=== PATIENT | male | born 1960 | race Hispanic/Latino ===

== ENCOUNTER 2016-09-23 09:10 | Inpatient (IN) | payer MEDICAID, OTHER ==
--- NOTE | 2016-09-23 10:25 | C.PDOC ---
History Of Present Illness 56 y/o male pmhx asthma, diabetes, brought in by EMS presents to the ED stating he needs to "come down from insulin." Pt discharged from [facility] this morning with Rx for metformin. Pt homeless, poor historian. No headache, SOB, cough, vomiting, diarrhea or any other complaints. As per EMS patient fell and sustained abrasion to left brow. Time Seen by Provider: 09/23/16 09:59 Chief Complaint (Nursing): Lower Extremity Problem/Injury History Per: Patient History/Exam Limitations: clinical condition Severity: Mild Recent travel outside of the [place]: No Past Medical History Reviewed: Historical Data, Nursing Documentation, Vital Signs Vital Signs: Last Vital Signs Temp 98.4 F 09/23/16 13:49 Pulse 78 09/23/16 13:49 Resp 18 09/23/16 13:49 BP 159/89 H 09/23/16 13:49 Pulse Ox 100 09/23/16 16:35 - Medical History PMH: Diabetes, HTN Family History: States: Unknown Family Hx - Social History Hx Alcohol Use: Yes (history) Hx Substance Use: Yes (history) Review Of Systems Except As Marked, All Systems Reviewed And Found Negative. Constitutional: Negative for: Fever Cardiovascular: Negative for: Chest Pain Respiratory: Negative for: Shortness of Breath Gastrointestinal: Negative for: Vomiting, Diarrhea Neurological: Negative for: Headache Physical Exam - Physical Exam Appears: Non-toxic, Unkempt, Other (groggy) Skin: Warm, Dry, No Rash Head: Atraumatic, Normacephalic, Abrasion (over left eye), Other (multiple scars over bilateral eyebrows) Eye(s): bilateral: EOMI Nose: Normal, No Epistaxis Neck: Normal ROM, Supple Chest: Symmetrical Cardiovascular: Rhythm Regular Respiratory: Normal Breath Sounds, No Rales, No Rhonchi, No Wheezing Gastrointestinal/Abdominal: Soft, No Tenderness Extremity: Normal ROM, Pedal Edema (bilateral lower extremities), Other ( venoustasis changes to bilateral lower extremities) Neurological/Psych: Normal Motor, Normal Sensation ED Course And Treatment - Laboratory Results Result Diagrams: 09/23/16 11:00 09/23/16 11:00 O2 Sat by Pulse Oximetry: 100 (on room air) Pulse Ox Interpretation: Normal - CT Scan/US CT head Other Rad Studies (CT/US): Read By Radiologist, Radiology Report Reviewed CT/US Interpretation: Accession No. : [id number]. Patient Name / ID : ANGUS TABARES / [id number]. Exam Date : 09/23/2016 10:38:59 ( Approved ). Study Comment : Sex / Age : M / 56Y. Creator : Roslyn Li MD. Dictator : Roslyn Li MD. Tibco Developer : Mica Layer : Roslyn Li MD. Approver2 : Report Date : 09/23/2016 10:57:09. My Comment : . PROCEDURE: CT HEAD WITHOUT CONTRAST. HISTORY: fall. COMPARISON: None available. TECHNIQUE: Axial computed tomography images were obtained through the head/brain without intravenous contrast. Radiation dose: Total exam DLP = 922.93 mGy-cm. FINDINGS: HEMORRHAGE: No intracranial hemorrhage. BRAIN: Mild diffuse atrophy with prominence of the ventricles and sulci noted. No mass effect or edema. The lux-white matter differentiation appears intact. Please note that MRI with diffusion imaging is more sensitive in the detection of acute ischemic event. VENTRICLES: No hydrocephalus. CALVARIUM: Unremarkable. PARANASAL SINUSES: Near complete opacification of the bilateral maxillary sinuses. Extensive opacification of the bilateral ethmoid air cells and bilateral frontal sinuses. MASTOID AIR CELLS: Unremarkable as visualized. No inflammatory changes. OTHER FINDINGS: Right parietal scalp soft tissue swelling. IMPRESSION: No acute intracranial hemorrhage. Mild diffuse atrophy. Right parietal scalp soft tissue swelling. Near complete opacification of the bilateral maxillary sinuses. Extensive opacification of the bilateral ethmoid air cells and bilateral frontal sinuses. Appearance suspected to reflect sinusitis. Occult fracture cannot be entirely excluded. If this is of clinical concern, suggest maxillofacial CT. Medical Decision Making Medical Decision Making: Plan: * CT head * labs * metformin * * Patient was just discharged from [facility] this morning, has Rx for Metformin, has multiple healing lacerations to both brows, chronic hematomas to both brows. Patient awake and alert. States he wants to go to [place]. He has a small lack over right parietal region, no active bleeding, CT no ICH, choice made not to place staple because patient is likely to be lost to follow up and staple would remain in place for too long. Patient was being discharged fro ED but rolled out of bed and landed on the floor on his v=face. Patient sustained another lac to his scarred broe to the right side. Bleeding stopped. Patient to be admitted due to being unable to walk. Patient moved to bed 8, railings up, patient climbed over raillings and again landed on his face, now sustaining a lac over left brow and left eyelid. Patient placed on 1:1 for safety. Spoke with Dr. Hunter, will admit for observation. Proceedure: Procedure explained to the patients. left brow and left lid cleaned and draped in a sterile fashion. Lidocaine 2% used for anesthesia. Laceration 2 cm long 4 5-0 absorbable sutures placed to left lid Disposition Discussed With Dr.: Mel Solorio Counseled Patient/Family Regarding: Studies Performed, Diagnosis, Need For Followup - Disposition Disposition: HOSPITALIZED Disposition Time: 12:56 Condition: GUARDED - POA Present On Arrival: None - Clinical Impression Clinical Impression: Substance abuse, Fall, Hyperglycemia, Abnormal blood chemistry - Scribe Statement The provider has reviewed the documentation as recorded by the Ramakrishna Méndez Provider Attestation: All medical record entries made by the Ramakrishna were at my direction and personally dictated by me. I have reviewed the chart and agree that the record accurately reflects my personal performance of the history, physical exam, medical decision making, and the department course for this patient. I have also personally directed, reviewed, and agree with the discharge instructions and disposition. Decision To Admit - Pt Status Changed To: Hospital Disposition Of: Observation - . Bed Request Type: Regular Patient Diagnosis: Substance abuse, Fall, Hyperglycemia, Abnormal blood chemistry
--- NOTE | 2016-09-23 10:58 | CT ---
PROCEDURE: CT HEAD WITHOUT CONTRAST. HISTORY: fall COMPARISON: None available. TECHNIQUE: Axial computed tomography images were obtained through the head/brain without intravenous contrast. Radiation dose: Total exam DLP = 922.93 mGy-cm. FINDINGS: HEMORRHAGE: No intracranial hemorrhage. BRAIN: Mild diffuse atrophy with prominence of the ventricles and sulci noted. No mass effect or edema. The lux-white matter differentiation appears intact. Please note that MRI with diffusion imaging is more sensitive in the detection of acute ischemic event. VENTRICLES: No hydrocephalus. CALVARIUM: Unremarkable. PARANASAL SINUSES: Near complete opacification of the bilateral maxillary sinuses. Extensive opacification of the bilateral ethmoid air cells and bilateral frontal sinuses. MASTOID AIR CELLS: Unremarkable as visualized. No inflammatory changes. OTHER FINDINGS: Right parietal scalp soft tissue swelling. IMPRESSION: No acute intracranial hemorrhage. Mild diffuse atrophy. Right parietal scalp soft tissue swelling. Near complete opacification of the bilateral maxillary sinuses. Extensive opacification of the bilateral ethmoid air cells and bilateral frontal sinuses. Appearance suspected to reflect sinusitis. Occult fracture cannot be entirely excluded. If this is of clinical concern, suggest maxillofacial CT.
[2016-09-23 11:12] LABS: BASO # 0.1 K/uL (0.0-0.2); BASO % 0.5 % (0.0-2.0); EOS # 0.2 K/uL (0.0-0.7); EOS % 1.5 % (0.0-4.0); HEMATOCRIT 32.4 % (35.0-51.0); LYMPH # 0.7 K/uL (1.0-4.3); LYMPH % 4.6 % (20.0-40.0); MEAN CELL VOLUME 90.1 fL (80.0-94.0); MEAN CORPUSCULAR HEMOGLOBIN 31.3 pg (27.0-31.0); MEAN CORPUSCULAR HGB CONC 34.7 g/dL (33.0-37.0); MEAN PLATELET VOLUME 7.9 fL (7.2-11.7); MONO # 0.5 K/uL (0.0-0.8); MONO % 2.9 % (0.0-10.0); NRBC % 0.4 % (0.0-2.0); PLATELET COUNT 107 K/uL (130-400); RED CELL DISTRIBUTION WIDTH 13.2 % (11.5-14.5); WHITE BLOOD COUNT 15.4 K/uL (4.8-10.8)
[2016-09-23 11:25] LABS: CHLORIDE 92 mmol/L (98-107)
[2016-09-23 11:26] LABS: SODIUM 131 mmol/L (132-148)
[2016-09-23 11:28] LABS: ALB/GLOB RATIO 0.6 (1.0-2.1); ALKALINE PHOSPHATASE 127 U/L (38-126); AST/SGOT 90 U/L (17-59); BILIRUBIN,TOTAL 1.5 mg/dL (0.2-1.3); BLOOD UREA NITROGEN 16 mg/dL (9-20); CARBON DIOXIDE 25 mmol/L (22-30); GFR AFRICAN-AMERICAN > 60; GLUCOSE,RANDOM 286 mg/dL (75-110); POTASSIUM 4.4 mmol/L (3.6-5.2); TOTAL PROTEIN 8.6 g/dL (6.3-8.3)
[2016-09-23 11:29] LABS: ALT/SGPT 45 U/L (21-72); CALCIUM 7.8 mg/dl (8.6-10.4)
[2016-09-23 11:38] LABS: ALCOHOL SERUM < 10 mg/dl (0-10)
[2016-09-23 11:40] LABS: EOSINOPHIL 1 % (0-4); NEUTROPHIL 88 % (50-75); TOTAL CELLS COUNTED 100
[2016-09-23] MEDS ORDERED: Midazolam 2 MG/2 ML VIAL ONE (11:45)
[2016-09-23] MEDS ORDERED: Sodium Chloride 0.9% 1,000 ML IV ONE (11:45)
--- NOTE | 2016-09-23 16:44 | CT ---
PROCEDURE: CT HEAD WITHOUT CONTRAST. HISTORY: fall COMPARISON: Comparison is made to the previous same-day study done at 10:40 a.m. TECHNIQUE: Axial computed tomography images were obtained through the head/brain without intravenous contrast. Radiation dose: Total exam DLP = 934.41 mGy-cm. FINDINGS: HEMORRHAGE: Interval appearance of trace extra-axial likely subdural hematoma at the right parietal frontal convexity best seen on image 34 series 4. There is also questionable trace subdural hematoma at the left temporal convexity versus artifact best seen on image 13 series 4. BRAIN: No mass effect or edema. [id number] atrophy is again noted. VENTRICLES: Unremarkable. No hydrocephalus. CALVARIUM: Unremarkable. PARANASAL SINUSES: Again seen is almost complete opacification of the maxillary and ethmoid sinuses and mucosal thickening in the frontal sinuses consistent with sinusitis. MASTOID AIR CELLS: Unremarkable as visualized. No inflammatory changes. OTHER FINDINGS: None. IMPRESSION: Interval appearance of small amount of extra-axial likely subdural hematoma along right temporal frontal convexity since the previous exam. Questionable trace left sided subdural hematoma versus artifact from dural thickening. Follow-up study 12- 24 hour is recommended. Otherwise no significant interval change.
[2016-09-23] MEDS ORDERED: Lidocaine 2% Inj (20ml) ONE ×2 (17:01→17:03)
--- NOTE | 2016-09-23 19:22 | CP.PCM.CON ---
<Pratima Albright - Last Filed: 09/23/16 19:32> History of Present Illness - History of Present Illness History of Present Illness: ICU Consult Note - Dr. Avalos Patient is a 56 M admitted to the ED for hyperglycemia. Patient is a homeless male with a previous hospital admission for diabetes, where he was given a prescription for Metformin. Heroine and barbiturates found in urine toxicology screen. He fell on his face in the emergency department. They sent him for a CT scan, which showed no bleed. He fell on his face a second time and was subsequently found to have a small subdural hematoma. Stitches were placed on his left forehead for the laceration. Patient was seen for possible admission to the ICU by Dr. Avalos and was found to be laying on an incline and eating while being fed by a nurse. Patient was able to hold a conversation and showed no signs of nausea, vomiting, chest pain , shortness of breath. ED attending noted patient unlikely a surgical candidate. Review of Systems - Review of Systems Review of Systems: Patient is responsive, cooperative, and is exhibiting no signs of respiratory distress. Patient is A&O x 2. - Constitutional Constitutional: Frequent Falls - EENT Eyes: absent: Change in Vision Nose/Mouth/Throat: Nasal Trauma. absent: Epistaxis - Cardiovascular Cardiovascular: absent: Chest Pain, Dyspnea - Respiratory Respiratory: absent: Dyspnea, Chest Congestion - Gastrointestinal Gastrointestinal: absent: Abdominal Pain, Constipation, Diarrhea, Nausea, Vomiting - Genitourinary Genitourinary: absent: Change in Urinary Stream - Musculoskeletal Musculoskeletal: absent: Abnormal Gait, Muscle Weakness - Integumentary Integumentary: absent: New Lesions - Neurological Neurological: Headaches. absent: Dizziness, Loss of Vision, Vertigo Past Patient History - Infectious Disease Hx of Infectious Diseases: None - Past Social History Smoking Status: Light Smoker < 10 Cigarettes Daily - CARDIAC Hx Hypertension: Yes - PULMONARY Hx Respiratory Disorders: Yes Hx Tuberculosis: Yes (Hx) - NEUROLOGICAL Hx Neurological Disorder: No - HEENT Hx HEENT Problems: No - RENAL Hx Chronic Kidney Disease: No - ENDOCRINE/METABOLIC Hx Endocrine Disorders: Yes Hx Diabetes Mellitus Type 2: Yes - HEMATOLOGICAL/ONCOLOGICAL Hx Blood Disorders: No - INTEGUMENTARY Hx Dermatological Problems: Yes Other/Comment: Chronic leg wound - MUSCULOSKELETAL/RHEUMATOLOGICAL Hx Musculoskeletal Disorders: No - GASTROINTESTINAL Hx Gastrointestinal Disorders: No - GENITOURINARY/GYNECOLOGICAL Hx Genitourinary Disorders: No - PSYCHIATRIC Hx Substance Use: Yes (history) - SURGICAL HISTORY Hx Surgeries: Yes Hx Musculoskeletal Surgery: Yes (Right leg surgery) - ANESTHESIA Hx Anesthesia: Yes Hx Anesthesia Reactions: No Meds Allergies/Adverse Reactions: Allergies Allergy/AdvReac Type Severity Reaction Status Date / Time shellfish derived Allergy Intermediate RASH Verified 09/23/16 09:43 Physical Exam - Constitutional Appears: No Acute Distress - Head Exam Head Exam: absent: ATRAUMATIC Additional comments: Patient has bilateral swelling (periorbital) of the eyelids with erythema. Patient has sutures placed at laceration. - Eye Exam Eye Exam: EOMI, Periorbital swelling, Periorbital tenderness, PERRL - ENT Exam ENT Exam: Mucous Membranes Moist - Neck Exam Neck exam: Positive for: Full Rom, Normal Inspection - Respiratory Exam Respiratory Exam: Clear to Auscultation Bilateral, NORMAL BREATHING PATTERN - Cardiovascular Exam Cardiovascular Exam: +S1, +S2. absent: Diastolic murmur, Systolic Murmur - GI/Abdominal Exam GI & Abdominal Exam: Normal Bowel Sounds, Soft - Extremities Exam Extremities exam: Positive for: full ROM - Neurological Exam Neurological exam: Alert Additional comments: oriented x2 5/5 muscle strength to extremities - Psychiatric Exam Psychiatric exam: Normal Affect, Normal Mood - Skin Skin Exam: Dry Additional comments: mottled anterior shins and clubbing of digits Results - Vital Signs Recent Vital Signs: Last Vital Signs Temp 98.4 F 09/23/16 13:49 Pulse 78 09/23/16 13:49 Resp 18 09/23/16 13:49 BP 159/89 H 09/23/16 13:49 Pulse Ox 100 09/23/16 17:36 - Labs Result Diagrams: 09/23/16 11:00 09/23/16 11:00 Labs: Laboratory Results - last 24 hr 09/23/16 16:39 Ammonia < 9 L Assessment & Plan (1) Subdural hematoma Status: Acute (2) Hyperglycemia Status: Acute - Assessment and Plan (Free Text) Assessment: Pt is a homeless 56M with medical history of diabetes who presented to the ED with hyperglycemia and admitted to ICU for observation for subdural hematoma. Positive for benzos and opiates. Plan: 1. Subdural Hematoma Observation f/u neurosurgeon, Dr. Roa recommendations Neurochecks q4h one to one CT Head: Interval appeaance of small amount of extra-axial likely subdural hematoma along right temporal frontal convexity compared to previous CT head. Questionable trace left sided subdural hematoma versus artifact from dural thickening 2. Hyperglycemia History of Diabetes Novolin Sliding Scale Accuchecks ACHS Monitor - Date & Time Date: 09/23/16 Time: 19:41 <Jaskaran Avalos M - Last Filed: 09/27/16 09:51> Meds - Medications Medications: Current Medications Amlodipine Besylate (Norvasc) 10 mg PO DAILY [facility] Last Admin: 09/26/16 09:07 Dose: 10 mg Glipizide (Glucotrol) 10 mg PO ACBD [facility] Last Admin: 09/27/16 08:14 Dose: 10 mg Ceftriaxone Sodium 1 gm/ (Sodium Chloride) 100 mls @ 100 mls/hr IVPB DAILY [facility] Last Admin: 09/26/16 09:07 Dose: 100 mls/hr Insulin Aspart (Novolog) 0 unit SC ACHS [facility] PRN Reason: Protocol Last Admin: 09/26/16 21:56 Dose: Not Given Insulin Glargine (Lantus) 12 unit SC HS [facility] Last Admin: 09/26/16 21:55 Dose: 12 u Labetalol HCl (Trandate) 100 mg PO Q12 [facility] Last Admin: 09/26/16 21:57 Dose: 100 mg Sitagliptin Phosphate (Januvia) 100 mg PO ACB [facility] Last Admin: 09/27/16 08:13 Dose: 100 mg Results - Vital Signs Recent Vital Signs: Last Vital Signs Temp 97.2 F L 09/27/16 08:35 Pulse 60 09/27/16 08:35 Resp 20 09/27/16 08:35 BP 163/90 H 09/27/16 08:35 Pulse Ox 100 09/27/16 08:35 - Labs Result Diagrams: 09/26/16 07:08 09/26/16 07:08 Labs: Laboratory Results - last 24 hr 09/26/16 09/26/16 09/26/16 11:41 17:12 21:18 POC Glucose (mg/dL) 282 H 284 H 349 H 09/27/16 06:57 POC Glucose (mg/dL) 276 H Attending/Attestation - Attestation I have personally seen and examined this patient.: Yes I have fully participated in the care of the patient.: Yes I have reviewed all pertinent clinical information: Yes Notes (Text): Today: September Patient seen and examined, Medical records reviewed Pain issues, skin care, head of the bed elevation, GI/DVT prophylaxis, glycemic control were addressed, and management discussed and formulated. Agree with above treatment plans as transcribed in Dr. Castro note Patient with alcohol dependence, admitted S/p fall with subdural hematoma EtOH <10, monitor for alcohol withdrawal, folate and thiamine Subdural hematoma 1:[address] scan Neurolgy and neurosurgery consultation called Neurochecks q4 Reume home antihypertensive and diabetic medications Accuchecks ACHS Total critical care time 45 minutes
[2016-09-23] MEDS ORDERED: Multivitamin (MVI) 10 ML, Thiamine 100 MG, Folic Acid 1 MG in Sodium Chloride 0.9% 1,00... IV ONE (19:30)
[2016-09-23 20:44] LABS: INR 1.3
[2016-09-23 20:53] LABS: IRON 55 ug/dL (49-181)
--- NOTE | 2016-09-23 21:01 | US ---
EXAM: US Abdomen Complete. CLINICAL HISTORY: 56 years old, male; Signs and symptoms; Other: Elevated lft; Additional info: Abnormal lft's TECHNIQUE: Real-time ultrasound of the abdomen (complete) with image documentation. COMPARISON: No relevant prior studies available. FINDINGS: Liver: Measured at 15.3 cm. Increased echogenicity. No mass. No intrahepatic bile duct dilation. Gallbladder: Not visualized. Common bile duct: No dilation, measured at 2.1 mm. Pancreas: Limited evaluation of the pancreas. Pancreatic duct measured at 3.2 mm. Kidneys: Right kidney measured 9.8 cm. Left kidney measured 10.6 cm. No hydronephrosis. Spleen: Measured at 12.6 x 6 cm. Aorta/IVC: Limited evaluation. Unremarkable as visualized. Free fluid visualized around the liver. IMPRESSION: Free fluid visualized around the liver. Liver demonstrates increased echogenicity. Limited evaluation of the pancreas. Pancreatic duct measured at 3.2 mm. Gallbladder not visualized. Additional details/findings as above.
--- NOTE | 2016-09-23 21:58 | CP.PCM.PN ---
Subjective - Date & Time of Evaluation Date of Evaluation: 09/23/16 Time of Evaluation: 20:40 - Subjective Subjective: H&P dictated #[id number] Objective - Vital Signs/Intake and Output Vital Signs (last 24 hours): Temp Pulse Resp BP Pulse Ox 98.4 F 80 14 130/80 100 09/23/16 13:49 09/23/16 19:30 09/23/16 19:30 09/23/16 19:30 09/23/16 19:30 - Medications Medications: Current Medications Multivitamins/Vitamin C 10 ml/Thiamine HCl 100 mg/ Folic Acid 1 mg/ Sodium Chloride 1,011.2 mls @ 80 mls/hr IV .[id number] ONE Stop: 09/24/16 08:08 Insulin Human Regular (Novolin R) 0 unit SC ACHS [facility] PRN Reason: Protocol - Labs Labs: PT 14.4 SECONDS (9.7-12.2) H 09/23/16 20:32 INR 1.3 09/23/16 20:32 APTT 30 SECONDS (21-34) 09/23/16 20:32
[2016-09-23] MEDS: (Novolin R) Insulin Human Regular 100 units/ml vial SC SCH (22:17)
--- NOTE | 2016-09-24 05:26 | HP ---
CHIEF COMPLAINT: Brought in by EMS as patient was found on the street wandering. HISTORY OF PRESENT ILLNESS: The patient is a 56-year-old male with past medical history of diabetes mellitus, asthma, noncompliant with medications who was brought in by EMS as the patient was found on the street, looking for the medication. All the history obtained from the ER physician's note and the patient is not able to give any detailed history. He is very reluctant to give the history while he was admitted to the hospital. As per the ER physician, he was seen at [facility] this morning for hyperglycemia. He was given a prescription for metformin and discha rged home. He was found wandering on the street and he is homeless. He was brought into the Emergen cy Room by EMS. As per ER physician, while the patient is being evaluated in the Emergency Room, he had 2 episodes of fall, hitting the forehead twice while he was in the Emergency Room. The patient u nderwent 2 CT scans in the ED, the initial scan did not show any bleed, but later scan showed a small subdural hematoma for which patient is being admitted for further evaluation. When I examined the p atient in the Emergency Room, the patient is sleepy, arousable, denied any headache, dizziness. Nitin ed any chest pain, shortness of breath or wheezing. Denied any nausea, vomiting, abdominal pain, chris rrhea or constipation. Denied any urinary complaints. Denied any leg pains or leg cramps. He was g oing back to sleep in-between the conversation. PAST MEDICAL HISTORY: Diabetes mellitus, asthma. PAST SURGICAL HISTORY: He denies any past surgical history. FAMILY HISTORY: Unknown. PERSONAL HISTORY: He is homeless. SOCIAL HISTORY: He admits to using alcohol, smoke cigarettes and uses heroine as per him. ALLERGIES: HE IS ALLERGIC TO SHELLFISH. HOME MEDICATIONS: Metformin 1000 mg p.o. b.i.d., Suboxone 8 mg/2 mg one sublingual daily. REVIEW OF SYSTEMS: As described in history of present illness. PHYSICAL EXAMINATION: GENERAL: Middle-aged male lying in bed in no acute distress. Sleepy, arousable. HEENT: Pupils equal, round, reacting to light and accommodation. No icterus, no pallor. There is u pper lid edema bilaterally from the fall. No oral thrush. No pharyngeal congestion. NECK: Supple. No JVD. LUNGS: Bilateral vesicular breath sounds. No wheezing, no rhonchi. CARDIOVASCULAR: S1, S2 present, regular. ABDOMEN: Soft, nontender. Bowel sounds present. No guarding, no rigidity, no rebound tenderness no pawel. CENTRAL NERVOUS SYSTEM: Sleepy, arousable, oriented x1. Moving all extremities equally. Gait, did not test. EXTREMITIES: No edema, very unkempt dry skin, left leg. There is 3 inches x 1 inch size stage II to III ulcer noted which was dressed in the Emergency Room. Palpable peripheral pulses. LABORATORY DATA: Labs done from the Emergency WBC 15.4, hemoglobin 11.2, hematocrit 32.4, platelets 107. PT 14.4, INR 1.3, PTT 30. Sodium 131, potassium 4.4, chloride 92, bicarbonate 25, BUN 16; crea tinine 0.9; glucose 308, 315, 452; calcium 7.8, total bilirubin 1.5, AST 90, ALT 45, alkaline phospha tase 127, total protein 8.6, albumin 3.2. Urine drug screen positive for opiates and benzodiazepines . Alcohol less than 20. Chest x-ray not done, initial CT head consistent with some mild diffuse atr ophy, right parietal scalp soft tissue swelling, near complete opacification of the bilateral maxilla ry sinuses, extensive opacification of the bilateral ethmoid air cells and bilateral frontal sinuses, occult fracture cannot be entirely excluded. Repeat CT consistent with interval appearance of small amount of extraaxial likely subdural hematoma along the right temporal frontal convexity since the p revious exam, questionable trace left side subdural hematoma versus artifact from dural thickening. Ultrasound of the abdomen consistent with free fluid visualized around the liver, liver demonstrates increased echogenicity. Limited evaluation of the pancreas, pancreatic duct measured 3.2mm. Gallbla dder not visualized. There was no EKG done and echocardiogram done, no x-ray done. ASSESSMENT AND PLAN: Middle-aged male with history of diabetes, asthma, noncompliant with his medica tion. Seen in [facility] ED, sent home with a script for metformin brought in by EMS. The patien t was having multiple falls in the ED and found to be confused, his CT consistent with a small subdur al hematoma and patient is being admitted for further management. 1. Small subdural hematoma, right and questionable left-sided hematoma versus artifact. 2. History of unsteady gait. 3. History of diabetes mellitus. 3. History of asthma, thrombocytopenia. 4. Abnormal LFTs, rule out alcoholic liver disease, substance abuse, hyperglycemia and initial CT co nsistent with possible sinusitis. 5. Slightly elevated WBC count. PLAN: The patient is being admitted to ICU for monitoring. We will do neuro checks q. 2 hours. We will keep the patient n.p.o., give IV fluids with banana bag at 80 mL/hour. We will do Accu-Chek q.i .d. with sliding scale coverage. We will obtain neurosurgery evaluation with Dr. Roa for subdura l hematoma. Repeat CT scan in a.m. We will obtain wound care consult and wet and dry dressing for t he left lower extremity ulcer. Start Rocephin 1 gram IV daily for possible sinusitis. We will check EKG and chest x-ray. We will repeat labs in a.m., monitor platelets closely. The patient needs for physical therapy and social media developer for possible subacute rehab placement once clinically stable an d medically clear. We will add further recommendation as his clinical course progresses. Mel Solorio MD cc: [id number] TT: 09/24/2016 05:26:17 ak
[2016-09-24 06:27] LABS: BASO % 0.2 % (0.0-2.0); EOS # 0.1 K/uL (0.0-0.7); EOS % 0.7 % (0.0-4.0); HEMATOCRIT 28.8 % (35.0-51.0); LYMPH # 1.4 K/uL (1.0-4.3); MEAN CELL VOLUME 89.6 fL (80.0-94.0); MEAN CORPUSCULAR HEMOGLOBIN 31.9 pg (27.0-31.0); MEAN CORPUSCULAR HGB CONC 35.6 g/dL (33.0-37.0); MEAN PLATELET VOLUME 7.8 fL (7.2-11.7); MONO # 0.6 K/uL (0.0-0.8); MONO % 3.6 % (0.0-10.0); NRBC % 0.1 % (0.0-2.0); PLATELET COUNT 121 K/uL (130-400); RED CELL DISTRIBUTION WIDTH 13.1 % (11.5-14.5)
[2016-09-24 06:28] LABS: CHLORIDE 94 mmol/L (98-107); SODIUM 133 mmol/L (132-148)
[2016-09-24 06:30] LABS: CHOLESTEROL 79 mg/dL (0-199)
[2016-09-24 06:31] LABS: ALB/GLOB RATIO 0.6 (1.0-2.1); ALKALINE PHOSPHATASE 119 U/L (38-126); AST/SGOT 59 U/L (17-59); BILIRUBIN,TOTAL 1.2 mg/dL (0.2-1.3); BLOOD UREA NITROGEN 23 mg/dL (9-20); CARBON DIOXIDE 25 mmol/L (22-30); GFR AFRICAN-AMERICAN > 60; GLUCOSE,RANDOM 368 mg/dL (75-110); TOTAL PROTEIN 7.9 g/dL (6.3-8.3)
[2016-09-24 06:32] LABS: ALT/SGPT 39 U/L (21-72); CALCIUM 7.8 mg/dl (8.6-10.4)
[2016-09-24 06:36] LABS: MAGNESIUM 1.8 mg/dL (1.6-2.3); PHOSPHOROUS 3.4 mg/dL (2.5-4.5)
[2016-09-24] MEDS: (Novolin R) Insulin Human Regular 100 units/ml vial SC SCH ×2 (08:06→12:48)
--- NOTE | 2016-09-24 08:45 | RAD ---
HISTORY: Admission film COMPARISON: No prior. FINDINGS: LUNGS: Biapical pleural thickening with upper lobe granulomatous changes. No gross focal infiltrate or effusion. PLEURA: No significant pleural effusion identified, no pneumothorax apparent. CARDIOVASCULAR: Normal. OSSEOUS STRUCTURES: No significant abnormalities. VISUALIZED UPPER ABDOMEN: Normal. OTHER FINDINGS: None. IMPRESSION: Biapical pleural thickening with upper lobe granulomatous changes. No gross focal infiltrate or effusion.
[2016-09-24 08:57] LABS: EOSINOPHIL 1 % (0-4); NEUTROPHIL 86 % (50-75); REACTIVE LYMPHOCYTES 1 % (0-0); TOTAL CELLS COUNTED 100
--- NOTE | 2016-09-24 10:18 | CT ---
PROCEDURE: CT HEAD WITHOUT CONTRAST. HISTORY: fall COMPARISON: None available. TECHNIQUE: Axial computed tomography images were obtained through the head/brain without intravenous contrast. Radiation dose: Total exam DLP = 2320.92 mGy-cm. FINDINGS: HEMORRHAGE: Trace right frontal extra-axial hemorrhage seen on prior examination is no longer evident. Questionable left temporal extra-axial hemorrhage again identified without interval increase in width. . No other extra-axial hemorrhage identified. No parenchymal or intraventricular hemorrhage appreciated. BRAIN: No mass effect or edema. Mild atrophy consistent with age. No evidence of acute infarct. VENTRICLES: Unremarkable. No hydrocephalus. CALVARIUM: No fracture. PARANASAL SINUSES: Almost complete opacification of both maxillary sinuses with extensive frontal and ethmoid mucoperiosteal thickening. . MASTOID AIR CELLS: Unremarkable as visualized. No inflammatory changes. OTHER FINDINGS: None. IMPRESSION: Persistent small left temporal extra-axial hemorrhage, likely subdural. Right frontal extra-axial hemorrhage is no longer evident. No other acute abnormality.
--- NOTE | 2016-09-24 10:42 | CP.PCM.PN ---
Subjective - Date & Time of Evaluation Date of Evaluation: 09/24/16 Time of Evaluation: 10:41 - Subjective Subjective: questionable at best SDH most likly dural thickening Stable since last CT No intervention indicated Clear by neurosurgery Objective - Vital Signs/Intake and Output Vital Signs (last 24 hours): Temp Pulse Resp BP Pulse Ox 97.5 F L 50 L 22 172/87 H 98 09/24/16 08:00 09/24/16 08:08 09/24/16 08:08 09/24/16 08:08 09/24/16 08:08 Intake and Output: 09/24/16 09/24/16 06:59 18:59 Intake Total 820 160 Output Total 300 100 Balance 520 60 - Medications Medications: Current Medications Ceftriaxone Sodium 1 gm/ (Sodium Chloride) 100 mls @ 100 mls/hr IVPB DAILY YEISON Last Admin: 09/24/16 00:45 Dose: 100 mls/hr Insulin Human Regular (Novolin R) 0 unit SC ACHS YEISON PRN Reason: Protocol Last Admin: 09/24/16 08:06 Dose: 8 unit - Labs Labs: 09/24/16 06:11 09/24/16 06:10 PT 14.4 SECONDS (9.7-12.2) H 09/23/16 20:32 INR 1.3 09/23/16 20:32 APTT 30 SECONDS (21-34) 09/23/16 20:32
--- NOTE | 2016-09-24 11:27 | CP.PCM.PN ---
Subjective - Date & Time of Evaluation Date of Evaluation: 09/24/16 Time of Evaluation: 11:15 - Subjective Subjective: Progress note dictated #[id number] Objective - Vital Signs/Intake and Output Vital Signs (last 24 hours): Temp Pulse Resp BP Pulse Ox 97.5 F L 53 L 17 170/102 H 99 09/24/16 08:00 09/24/16 11:00 09/24/16 11:00 09/24/16 10:08 09/24/16 11:00 Intake and Output: 09/24/16 09/24/16 06:59 18:59 Intake Total 820 248 Output Total 300 200 Balance 520 48 - Medications Medications: Current Medications Home Med (Metformin [Glucophage]) 1,000 mg PO BID [facility] Ceftriaxone Sodium 1 gm/ (Sodium Chloride) 100 mls @ 100 mls/hr IVPB DAILY [facility] Last Admin: 09/24/16 00:45 Dose: 100 mls/hr Insulin Human Regular (Novolin R) 0 unit SC ACHS YEISON PRN Reason: Protocol Last Admin: 09/24/16 08:06 Dose: 8 unit - Labs Labs: 09/24/16 06:11 09/24/16 06:10 PT 14.4 SECONDS (9.7-12.2) H 09/23/16 20:32 INR 1.3 09/23/16 20:32 APTT 30 SECONDS (21-34) 09/23/16 20:32
--- NOTE | 2016-09-24 13:15 | CON ---
DATE: 09/24/2016 In ICU room 18. This is a 56-year-old male with known history of type 2 diabetes and hypertension and admitted with f requent syncopal episodes with a recent subdural hematoma and is now being referred for diabetic eval uation because of supervening hyperglycemic accelerations as noted thereof. PAST MEDICAL HISTORY: The patient admits to having been diagnosed to have type 2 diabetes and placed on metformin 500 mg twice a day, history of hypertensive cardiovascular disease and dyslipidemia. FAMILY HISTORY: Positive for hypertension and diabetes. SOCIAL HISTORY: The patient is apparently homeless at this time with polysubstance abuse with nicoti ne dependence, chronic alcoholism and dependence on narcotic analgesics. REVIEW OF SYSTEMS: As mentioned above, admits to generalized body weakness with easy fatigability an d tiredness and suboptimal energy level. Also admits of dizziness and lightheadedness with frequent bouts of near syncope and syncopal episodes as noted. No chest pains or palpitations or PNDs. His o ral intake is variable and suboptimal with dyspepsia, nausea and vague upper abdominal pains. Also, admits to marked polyuria as noted. PHYSICAL EXAMINATION: GENERAL: This is an average built male, in no apparent distress. VITAL SIGNS: Blood pressure of 150/90, pulse of 70 beats per minute and regular, temperature 99, res pirations 20. Height is 5 feet 8 inches, weight is 127 pounds. HEENT: Head normocephalic. Eyes anicteric with pink conjunctivae. Fundoscopy not possible at this time. Ears, nose and throat otherwise normal. NECK: Supple. Thyroid gland is normal size. No carotid bruits. No cervical adenopathy. CARDIOPULMONARY: Some adynamic precordium. S1, S2 is rapid and regular. LUNGS: Clear to auscultation. ABDOMEN: Flat, soft with positive bowel sounds. EXTREMITIES: No peripheral edema. Pulses are +2 bilaterally. LABORATORIES: The chemistry showed a BUN of 23, sodium 133, potassium 4.0, chloride 94, CO2 25, gluc ose 368 and creatinine 1.0. His glucose levels have ranged from 390-425 mg/dL. His A1c is 14.7%. ASSESSMENT: This is a 56-year-old male with uncontrolled and decompensated type 2 insulin-requiring diabetes with hyperosmolar hyperglycemic state and dehydration with prerenal azotemia and spurious hy ponatremia. PLAN OF MANAGEMENT: Will clearly need a more physiologic basal and bolus insulin dose regimen montrell cachorro and we will order the aforementioned thereof. We will increase his Lantus to 30 units subQ at bedtime daily to start tonight. We will also add NovoLog given as 12 units subQ t.i.d. before meals to start at dinnertime today as ordered. We will also order a low-dose correction scale using NovoLo g insulin to obviate hypoglycemia and this will be done before meals and at bedtime as ordered. We w ill titrate incrementally as indicated to optimize metabolic control. We will also initiate diabetic education and dietary instructions at the time of this admission. We will obtain serial chemistries and supplement accordingly as needed. In the meantime, we will continue the vigorous IV hydration a s ordered. We will follow. Gayle Botello MD cc: [id number] TT: 09/24/2016 13:14:43 Confirmation # [id number] Dictation # [id number]
[2016-09-24] MEDS ORDERED: (Novolog) Insulin Aspart, Recombinant 100 u/ml 10 ml vial SC SCH (16:30)
[2016-09-24] MEDS: (Novolog) Insulin Aspart, Recombinant 100 u/ml 10 ml vial SC SCH ×3 (17:27→21:47)
--- NOTE | 2016-09-24 17:49 | CP.CCUPN ---
<Jose RamonPratima - Last Filed: 09/24/16 17:47> CCU Subjective - Physician Review Subjective (Free Text): 09/24/16 17:48 Patient is a 56 M presented to ED for hyperglycemia. Patient is a homeless male with a past medical history of asthma, hypertension, and diabetes was found wandering the street and brought to the ED by EMS. He was at [facility] where he was prescribed Metformin for hyperglycemia. Yesterday, at [facility] ED, patient fell twice, with the second fall resulting in the findings of a small non-clinical subdural hematoma in the left temporal region of the brain. Family history is positive for hypertension and diabetes. Social history is positive for benzos and opiates in the urine toxicology screen prior to admission to the ICU.Patient has a history of chronic alcoholism , nicotine dependence, and dependence on narcotic analgesics. Pt seen and examined at bedside. Patient comfortable and has no complaints or neurological deficits. Eating at bedside. For transfer to medical floor. Critical Care Time Spent (in minutes): 90 CCU Objective - Vital Signs / Intake & Output Vital Signs (Last 4 hours): Vital Signs Pulse Resp BP Pulse Ox 09/24/16 15:08 58 L 22 158/74 H 100 09/24/16 14:08 57 L 22 165/95 H Intake and Output (Last 8hrs): Intake & Output 09/24/16 09/24/16 09/24/16 06:59 14:59 22:59 Intake Total 740 598 0 Output Total 300 350 0 Balance 440 248 0 Intake: Intake, IV Amount 740 348 Right Forearm 640 348 Right Forearm #2 100 Oral 250 0 Output: Urine 300 350 0 Urine, Voided 300 350 0 Other: # Voids Urine, Voided 1 1 - Physical Exam Head: Positive for: Swelling (periorbital swelling, ecchymosis), Laceration, Other. Negative for: Atraumatic Extroacular Muscles: Positive for: EOMI Mouth: Positive for: Moist Mucous Membranes Neck: Positive for: Normal Range of Motion Respiratory/Chest: Positive for: Clear to Auscultation, Good Air Exchange. Negative for: Respiratory Distress Cardiovascular: Positive for: Normal S1, S2. Negative for: Murmurs Abdomen: Positive for: Normal Bowel Sounds. Negative for: Tenderness, Distention Upper Extremity: Positive for: Normal Inspection Lower Extremity: Positive for: Normal Inspection. Negative for: Edema Neurological: Positive for: CN II-XII Intact Skin: Positive for: Dry Psychiatric: Positive for: Alert, Oriented x 3 - Medications Active Medications: Active Medications Generic Name Dose Route Start Last Admin Trade Name Freq PRN Reason Stop Dose Admin Amlodipine Besylate 10 mg 09/24/16 12:45 09/24/16 12:48 Norvasc PO 10 mg DAILY YEISON Administration Ceftriaxone Sodium 1 gm/ 100 mls @ 100 mls/hr 09/23/16 23:45 09/24/16 11:50 Sodium Chloride IVPB 100 mls/hr DAILY YEISON Administration Insulin Aspart 12 unit 09/24/16 16:30 09/24/16 17:33 Novolog SC 12 unit AC YEISON Administration Insulin Aspart 0 unit 09/24/16 16:30 09/24/16 17:27 Novolog SC Not Given ACHS [facility] Protocol Insulin Glargine 30 unit 09/24/16 22:00 Lantus SC HS YEISON Labetalol HCl 100 mg 09/24/16 22:00 Trandate PO Q12 YEISON Metformin HCl 1,000 mg 09/24/16 18:00 09/24/16 17:32 Glucophage PO 1,000 mg BIDCC YEISON Administration - Patient Studies Lab Studies: Microbiology Studies 09/23/16 21:25 MRSA Culture (Admit) - Final Nose MRSA NOT DETECTED Lab Studies 09/24/16 09/24/16 09/24/16 Range/Units 16:40 12:24 07:57 WBC (4.8-10.8) K/uL RBC (4.40-5.90) Mil/uL Hgb (12.0-18.0) g/dL Hct (35.0-51.0) % MCV (80.0-94.0) fL MCH (27.0-31.0) pg MCHC (33.0-37.0) g/dL RDW (11.5-14.5) % Plt Count (130-400) K/uL MPV (7.2-11.7) fL Neut % (Auto) (50.0-75.0) % Lymph % (Auto) (20.0-40.0) % [place] % (Auto) (0.0-10.0) % Eos % (Auto) (0.0-4.0) % Baso % (Auto) (0.0-2.0) % Neut # (1.8-7.0) K/uL Lymph # (1.0-4.3) K/uL [place] # (0.0-0.8) K/uL Eos # (0.0-0.7) K/uL Baso # (0.0-0.2) K/uL Neutrophils % (Manual) (50-75) % Band Neutrophils % (0-2) % Lymphocytes % (Manual) (20-40) % Reactive Lymphs % (0-0) % Monocytes % (Manual) (0-10) % Eosinophils % (Manual) (0-4) % Platelet Estimate (NORMAL) RBC Morphology PT (9.7-12.2) SECONDS INR APTT (21-34) SECONDS Sodium (132-148) mmol/L Potassium (3.6-5.2) mmol/L Chloride (98-107) mmol/L Carbon Dioxide (22-30) mmol/L Anion Gap (10-20) BUN (9-20) mg/dL Creatinine (0.8-1.5) MG/DL Est GFR ( Amer) Est GFR (Non-Af Amer) POC Glucose (mg/dL) 225 H 425 H* 390 H (65-110) mg/dL Random Glucose (75-110) mg/dL Hemoglobin A1c (4.2-6.5) % Calcium (8.6-10.4) mg/dl Phosphorus (2.5-4.5) mg/dL Magnesium (1.6-2.3) mg/dL Iron (49-181) ug/dL TIBC (250-450) ug/dL % Saturation (20-55) Ferritin ng/mL Total Bilirubin (0.2-1.3) mg/dL AST (17-59) U/L ALT (21-72) U/L Alkaline Phosphatase (38-126) U/L Ammonia (9-33) umol/L Total Protein (6.3-8.3) g/dL Albumin (3.5-5.0) g/dL Globulin (2.2-3.9) gm/dL Albumin/Globulin Ratio (1.0-2.1) Triglycerides (0-149) mg/dL Cholesterol (0-199) mg/dL LDL Cholesterol Direct (0-129) mg/dL HDL Cholesterol (30-70) mg/dL Vitamin B12 (239-931) pg/mL Folate ng/mL 09/24/16 09/24/16 09/23/16 Range/Units 06:11 06:10 22:09 WBC 16.0 H (4.8-10.8) K/uL RBC 3.22 L (4.40-5.90) Mil/uL Hgb 10.3 L (12.0-18.0) g/dL Hct 28.8 L (35.0-51.0) % MCV 89.6 (80.0-94.0) fL MCH 31.9 H (27.0-31.0) pg MCHC 35.6 (33.0-37.0) g/dL RDW 13.1 (11.5-14.5) % Plt Count 121 L (130-400) K/uL MPV 7.8 (7.2-11.7) fL Neut % (Auto) 86.5 H (50.0-75.0) % Lymph % (Auto) 9.0 L (20.0-40.0) % [place] % (Auto) 3.6 (0.0-10.0) % Eos % (Auto) 0.7 (0.0-4.0) % Baso % (Auto) 0.2 (0.0-2.0) % Neut # 13.8 H (1.8-7.0) K/uL Lymph # 1.4 (1.0-4.3) K/uL [place] # 0.6 (0.0-0.8) K/uL Eos # 0.1 (0.0-0.7) K/uL Baso # 0.0 (0.0-0.2) K/uL Neutrophils % (Manual) 86 H (50-75) % Band Neutrophils % 4 H (0-2) % Lymphocytes % (Manual) 5 L (20-40) % Reactive Lymphs % 1 H (0-0) % Monocytes % (Manual) 3 (0-10) % Eosinophils % (Manual) 1 (0-4) % Platelet Estimate Slightly decreased L (NORMAL) RBC Morphology Normal PT (9.7-12.2) SECONDS INR APTT (21-34) SECONDS Sodium 133 (132-148) mmol/L Potassium 4.0 (3.6-5.2) mmol/L Chloride 94 L (98-107) mmol/L Carbon Dioxide 25 (22-30) mmol/L Anion Gap 18 (10-20) BUN 23 H (9-20) mg/dL Creatinine 1.0 (0.8-1.5) MG/DL Est GFR ( Amer) > 60 Est GFR (Non-Af Amer) > 60 POC Glucose (mg/dL) 452 H* (65-110) mg/dL Random Glucose 368 H (75-110) mg/dL Hemoglobin A1c 14.7 H (4.2-6.5) % Calcium 7.8 L (8.6-10.4) mg/dl Phosphorus 3.4 (2.5-4.5) mg/dL Magnesium 1.8 (1.6-2.3) mg/dL Iron (49-181) ug/dL TIBC (250-450) ug/dL % Saturation 22 (20-55) Ferritin 291.0 ng/mL Total Bilirubin 1.2 (0.2-1.3) mg/dL AST 59 D (17-59) U/L ALT 39 (21-72) U/L Alkaline Phosphatase 119 (38-126) U/L Ammonia (9-33) umol/L Total Protein 7.9 (6.3-8.3) g/dL Albumin 2.9 L (3.5-5.0) g/dL Globulin 4.9 H (2.2-3.9) gm/dL Albumin/Globulin Ratio 0.6 L (1.0-2.1) Triglycerides 113 (0-149) mg/dL Cholesterol 79 (0-199) mg/dL LDL Cholesterol Direct < 30 (0-129) mg/dL HDL Cholesterol 29 L (30-70) mg/dL Vitamin B12 898 (239-931) pg/mL Folate ng/mL 09/23/16 Range/Units 20:32 WBC (4.8-10.8) K/uL RBC (4.40-5.90) Mil/uL Hgb (12.0-18.0) g/dL Hct (35.0-51.0) % MCV (80.0-94.0) fL MCH (27.0-31.0) pg MCHC (33.0-37.0) g/dL RDW (11.5-14.5) % Plt Count (130-400) K/uL MPV (7.2-11.7) fL Neut % (Auto) (50.0-75.0) % Lymph % (Auto) (20.0-40.0) % [place] % (Auto) (0.0-10.0) % Eos % (Auto) (0.0-4.0) % Baso % (Auto) (0.0-2.0) % Neut # (1.8-7.0) K/uL Lymph # (1.0-4.3) K/uL [place] # (0.0-0.8) K/uL Eos # (0.0-0.7) K/uL Baso # (0.0-0.2) K/uL Neutrophils % (Manual) (50-75) % Band Neutrophils % (0-2) % Lymphocytes % (Manual) (20-40) % Reactive Lymphs % (0-0) % Monocytes % (Manual) (0-10) % Eosinophils % (Manual) (0-4) % Platelet Estimate (NORMAL) RBC Morphology PT 14.4 H (9.7-12.2) SECONDS INR 1.3 APTT 30 (21-34) SECONDS Sodium (132-148) mmol/L Potassium (3.6-5.2) mmol/L Chloride (98-107) mmol/L Carbon Dioxide (22-30) mmol/L Anion Gap (10-20) BUN (9-20) mg/dL Creatinine (0.8-1.5) MG/DL Est GFR ( Amer) Est GFR (Non-Af Amer) POC Glucose (mg/dL) (65-110) mg/dL Random Glucose (75-110) mg/dL Hemoglobin A1c (4.2-6.5) % Calcium (8.6-10.4) mg/dl Phosphorus (2.5-4.5) mg/dL Magnesium (1.6-2.3) mg/dL Iron 55 (49-181) ug/dL TIBC 223 L (250-450) ug/dL % Saturation 25 (20-55) Ferritin ng/mL Total Bilirubin (0.2-1.3) mg/dL AST (17-59) U/L ALT (21-72) U/L Alkaline Phosphatase (38-126) U/L Ammonia 11 D (9-33) umol/L Total Protein (6.3-8.3) g/dL Albumin (3.5-5.0) g/dL Globulin (2.2-3.9) gm/dL Albumin/Globulin Ratio (1.0-2.1) Triglycerides (0-149) mg/dL Cholesterol (0-199) mg/dL LDL Cholesterol Direct (0-129) mg/dL HDL Cholesterol (30-70) mg/dL Vitamin B12 (239-931) pg/mL Folate 8.8 ng/mL Laboratory Results - last 24 hr 09/23/16 09/23/16 09/24/16 20:32 22:09 06:10 WBC RBC Hgb Hct MCV MCH MCHC RDW Plt Count MPV Neut % (Auto) Lymph % (Auto) [place] % (Auto) Eos % (Auto) Baso % (Auto) Neut # Lymph # [place] # Eos # Baso # Neutrophils % (Manual) Band Neutrophils % Lymphocytes % (Manual) Reactive Lymphs % Monocytes % (Manual) Eosinophils % (Manual) Platelet Estimate RBC Morphology PT 14.4 H INR 1.3 APTT 30 Sodium 133 Potassium 4.0 Chloride 94 L Carbon Dioxide 25 Anion Gap 18 BUN 23 H Creatinine 1.0 Est GFR ( Amer) > 60 Est GFR (Non-Af Amer) > 60 POC Glucose (mg/dL) 452 H* Random Glucose 368 H Hemoglobin A1c Calcium 7.8 L Phosphorus 3.4 Magnesium 1.8 Iron 55 TIBC 223 L % Saturation 25 22 Ferritin 291.0 Total Bilirubin 1.2 AST 59 D ALT 39 Alkaline Phosphatase 119 Ammonia 11 D Total Protein 7.9 Albumin 2.9 L Globulin 4.9 H Albumin/Globulin Ratio 0.6 L Triglycerides 113 Cholesterol 79 LDL Cholesterol Direct < 30 HDL Cholesterol 29 L Vitamin B12 898 Folate 8.8 09/24/16 09/24/16 09/24/16 06:11 07:57 12:24 WBC 16.0 H RBC 3.22 L Hgb 10.3 L Hct 28.8 L MCV 89.6 MCH 31.9 H MCHC 35.6 RDW 13.1 Plt Count 121 L MPV 7.8 Neut % (Auto) 86.5 H Lymph % (Auto) 9.[address] [place] % (Auto) 3.6 Eos % (Auto) 0.7 Baso % (Auto) 0.2 Neut # 13.8 H Lymph # 1.[address] [place] # 0.6 Eos # 0.1 Baso # 0.0 Neutrophils % (Manual) 86 H Band Neutrophils % 4 H Lymphocytes % (Manual) 5 L Reactive Lymphs % 1 H Monocytes % (Manual) 3 Eosinophils % (Manual) 1 Platelet Estimate Slightly decreased L RBC Morphology Normal PT INR APTT Sodium Potassium Chloride Carbon Dioxide Anion Gap BUN Creatinine Est GFR ( Amer) Est GFR (Non-Af Amer) POC Glucose (mg/dL) 390 H 425 H* Random Glucose Hemoglobin A1c 14.7 H Calcium Phosphorus Magnesium Iron TIBC % Saturation Ferritin Total Bilirubin AST ALT Alkaline Phosphatase Ammonia Total Protein Albumin Globulin Albumin/Globulin Ratio Triglycerides Cholesterol LDL Cholesterol Direct HDL Cholesterol Vitamin B12 Folate 09/24/16 16:40 WBC RBC Hgb Hct MCV MCH MCHC RDW Plt Count MPV Neut % (Auto) Lymph % (Auto) [place] % (Auto) Eos % (Auto) Baso % (Auto) Neut # Lymph # [place] # Eos # Baso # Neutrophils % (Manual) Band Neutrophils % Lymphocytes % (Manual) Reactive Lymphs % Monocytes % (Manual) Eosinophils % (Manual) Platelet Estimate RBC Morphology PT INR APTT Sodium Potassium Chloride Carbon Dioxide Anion Gap BUN Creatinine Est GFR ( Amer) Est GFR (Non-Af Amer) POC Glucose (mg/dL) 225 H Random Glucose Hemoglobin A1c Calcium Phosphorus Magnesium Iron TIBC % Saturation Ferritin Total Bilirubin AST ALT Alkaline Phosphatase Ammonia Total Protein Albumin Globulin Albumin/Globulin Ratio Triglycerides Cholesterol LDL Cholesterol Direct HDL Cholesterol Vitamin B12 Folate EKG/Cardiology Studies: Cardiology / EKG Studies 09/23/16 23:53 ELECTROCARDIOGRAM DAILY Comment: Mode Of Transportation: Reason For Exam: admit 09/24/16 07:00 EKG [ELECTROCARDIOGRAM] Routine Comment: Mode Of Transportation: PORTABLE Reason For Exam: new admit Fingerstick Blood Sugar Results: 452 Review of Systems - Review of Systems Review of Systems: ROS: denies visual change, headache, fever, chills, chest pain, palpitations, shortness of breath, nausea, vomiting, abdominal pain, diarrhea, constipation. Critical Care Progress Note - Prophylaxis GI Prophylaxis GI: Not Indicated - Prophylaxis DVT Prophylaxis DVT: SCDs - Nutrition Nutrition: Nutrition Category Date Time Status Heart Healthy Diet [DIET] Diets 09/24/16 Breakfast Active Assessment/Plan (1) Subdural hematoma Current Visit: Yes Status: Acute (2) Hyperglycemia Current Visit: Yes Status: Acute - Assessment and Plan (Free Text) Assessment: Patient is 56M admitted to ICU for observation with small subdural hematoma. For transfer to medical floors. Plan: Neuro: Subdural hematoma 1:1 observation Neurochecks q4 09/24/16 CT head: curvilinear hyperdensity along left temporal convexity appears unchagned from prior examinations. It is not as hyeprdense as the transient right frontal extra-axial hemorrhage was. Most likely represents dural thickening rather than subdural hemorrhage. 09/23/16 CT head: small amount of extra-axial likely subdural hematoma along right temporal frontal convexity since previous exam. Possible trace left sided subdural hematoma or artifact from dural thickening. Neuro consult, Dr. Tidwell. Recommends EEG f/u EEG CVS: Hypertension amlodipine 10 mg PO daily labetalol 100 mg PO q12 Pulm: History of Asthma - asymptomatic 09/24/16 CXR: biapical pleural thickening with upper lobe granulomatous changes. no gross focal infiltrate or effusion Heme: Hemoglobin 10.3, Hematocrit 28.8, down from 09/23/16 Hemoglobin 11.2, Hematocrit 32.4 Monitor Daily CBC Endo: hyperglycemia Hemoglobin A1c 14.7 history of Diabetes Novolog 12 units Lantus 30 units Accuchecks ACHS 09/24/[address] Araujo Cam: increase Lantus to 30 units SubQ bedtime daily. Novolog 12 units subQ TID before meals. Continue vigorous IV hydration Monitor GI: Heart Healthy, low sodium (diabetic) diet : urine tox screen positive for benzodiazepine and opiates. Monitor I/Os Renal: BUN/Cr 23/1.0 Monitor I/Os ID: WBC trending up from 15.4 to 16.0 Ceftriaxone 1 gm 100 cc @ 100cc/hr Monitor daily CBC Prophylaxis: SCD - Date & Time Date: 09/24/16 Time: 17:54 <Sharon Lawrence - Last Filed: 09/29/16 08:02> CCU Objective - Vital Signs / Intake & Output Intake and Output (Last 8hrs): Intake & Output 09/28/16 09/29/16 09/29/16 22:59 06:59 14:59 Intake Total 840 Balance 840 Intake: Oral 840 Other: # Voids Urine, Voided 1 # Bowel Movements 0 - Medications Active Medications: Active Medications Generic Name Dose Route Start Last Admin Trade Name Talatq PRN Reason Stop Dose Admin Amlodipine Besylate 10 mg 09/24/16 12:45 09/28/16 10:05 Norvasc PO 10 mg DAILY YEISON Administration Amoxicillin/Clavulanate Potassium 1 tab 09/29/16 10:00 Augmentin 875 Mg-125 Mg Tab PO BID YEISON Glipizide 10 mg 09/26/16 16:30 09/28/16 17:30 Glucotrol PO 10 mg ACBD YEISON Administration Insulin Aspart 0 unit 09/24/16 16:30 09/28/16 22:00 Novolog SC Not Given ACHS YEISON Protocol Insulin Aspart 10 unit 09/28/16 16:30 09/28/16 17:30 Novolog SC 10 unit AC YEISON Administration Insulin Glargine 20 unit 09/28/16 22:00 09/28/16 22:27 Lantus SC 20 units HS YEISON Administration Labetalol HCl 100 mg 09/24/16 22:00 09/28/16 22:21 Trandate PO 100 mg Q12 YEISON Administration Sitagliptin Phosphate 100 mg 09/27/16 07:30 09/28/16 08:15 Januvia PO 100 mg ACB YEISON Administration - Patient Studies Lab Studies: Lab Studies 09/29/16 09/29/16 09/28/16 Range/Units 06:59 06:42 22:02 POC Glucose (mg/dL) 76 52 L 112 H (65-110) mg/dL 09/28/16 09/28/16 Range/Units 16:32 11:33 POC Glucose (mg/dL) 276 H 223 H (65-110) mg/dL Laboratory Results - last 24 hr 09/28/16 09/28/16 09/28/16 11:33 16:32 22:02 POC Glucose (mg/dL) 223 H 276 H 112 H 09/29/16 09/29/16 06:42 06:59 POC Glucose (mg/dL) 52 L 76 Critical Care Progress Note - Nutrition Nutrition: Nutrition Category Date Time Status Heart Healthy Diet [DIET] Diets 09/24/16 Breakfast Active Attending/Attestation - Attestation I have personally seen and examined this patient.: Yes I have fully participated in the care of the patient.: Yes I have reviewed all pertinent clinical information: Yes Notes (Text): 09/24/16 19:01 Patient seen and examined in the morning. Admitted on 09/23 with very small SDH or no clinical significance. BS uncontrolled, start long and short acting insulin. OK for transfer to stroke floor.
--- NOTE | 2016-09-24 19:40 | PN ---
DATE: 09/24/2016 The patient was seen and examined on rounds this morning at bedside. The patient is very uncooperati ve. Denies any complaints. PHYSICAL EXAMINATION: GENERAL: Very unkempt. VITAL SIGNS: Blood pressure 167/96, pulse 61, respirations 20, temperature 97.3 degrees Fahrenheit, O2 sats 99% on room air. HEENT: Pupils equal, round, reacting to light and accommodation. Extraocular muscles intact. No ic terus, no pallor. There is ecchymosis of the upper lids. LUNGS: Bilateral vesicular breath sounds. No wheezing, no rhonchi. NECK: Supple. No JVD. ABDOMEN: Soft, nontender. Bowel sounds present. No guarding, no rigidity, no rebound tenderness no pawel. CARDIOVASCULAR: S1, S2 present, regular. CENTRAL NERVOUS SYSTEM: Awake, oriented x 1-2. Moving all the extremities. EXTREMITIES: Left lateral leg ulcer with a dressing in place. MEDICATIONS: Norvasc 10 mg daily, Rocephin 1 gram daily, Lantus 30 units subQ at bedtime, labetalol 100 mg p.o. q.12 hours, metformin 1000 mg p.o. b.i.d. LABORATORY DATA: Done from this morning: WBC 16, hemoglobin 10, hematocrit 28.8, platelets 121. So dium 133, potassium 4.0, chloride 94, bicarbonate 25, BUN 23, creatinine 1.0, glucose 390, hemoglobin A1c 14.7, calcium 7.8, phosphorus 3.4, and magnesium 1.8. Iron 55, TIBC 223, saturation %, breonna ritin 291. AST 59, ALT 39, alkaline phosphatase 119, total protein 7.9, albumin 2.9. Triglycerides 113, cholesterol 79, LDL less than 30, HDL 29 and vitamin B12 of 898, folate is 8.8. MRSA not detect ed. A repeat head CT: Possible dural thickening rather than subdural hemorrhage as documented by ra corbin. ASSESSMENT AND PLAN: A middle-aged male with uncontrolled diabetes mellitus, noncompliant with medic ations, asthma, admitted for unsteady gait, questionable small subdural hematoma and a repeat CT radi ology reporting as possible dural thickening rather than subdural hematoma. His sugars are uncontrol led with a hemoglobin A1c of 14.9. His initial CT shows pansinusitis and left leg ulcer. Will fani nue with Rocephin. His blood pressures are running high. Will start the patient on Norvasc 10 mg p. o. daily. Monitor blood pressure closely. Endocrinology consultation appreciated. He was started o n an insulin regimen. I will request podiatry consult for foot ulcer. I will request ENT consult [facility] Dr. Hilario. If the patient's symptoms do not improve, may require drainage of the sinuses. Will r [facility] for placement. Will repeat labs in the morning. Mel Solorio MD cc: [id number] TT: 09/24/2016 19:40:04 Confirmation # [id number] Dictation # [id number] amanda
[2016-09-24] MEDS ORDERED: (Lantus) Insulin Glargine, Recombinant SC SCH ×2 (22:00)
[2016-09-25] MEDS: (Novolog) Insulin Aspart, Recombinant 100 u/ml 10 ml vial SC SCH ×7 (08:58→21:56)
--- NOTE | 2016-09-25 12:42 | CON ---
DATE: 09/24/2016 REASON FOR CONSULTATION: Abnormal CAT scan from the fall. CHIEF COMPLAINT: The patient was brought in to [facility] Emergency Room because the patient was found on the street. He was getting treatment for his hyperglycemia at Hospital and he got a treatment and he was found on the street. He was brought in to the [facility] Emergency Room. In the Emergency Room, he had 2 falls face down and injured his head without any loss of consciousness as per the documentation, no history of involuntary movements being documented as per the chart. The CAT scan was reported as small subdural hematoma. From a neurological point of view, I was called in to evaluate him for further management. PAST MEDICAL HISTORY: Diabetes mellitus and asthma. PAST SURGICAL HISTORY: Normal. PERSONAL HISTORY: He admits using alcohol and smokes cigarettes. He uses heroin as per his statement and as well as the documentation. MEDICATIONS: He is on ceftriaxone, metformin, insulin, amlodipine, labetalol. PHYSICAL EXAMINATION: VITAL SIGNS: Blood pressure 158/74, mean arterial pressure of 102, respiratory rate 16, temperature afebrile. NECK: Supple. No carotid bruit. HEART: Sounds regular. CHEST: Fair air entry. EXTREMITIES: No edema in legs. FACE: On examination of his face, ecchymosis around both eyes, raccoon eye features noted. Lid edema also noted and some facial abrasion also seen. NEUROLOGIC EXAMINATION: MENTAL STATUS EXAMINATION: He is awake, alert, oriented to person, place, and time. He claims that fell down, repeatedly he is falling. He does not know the reason. CRANIAL NERVE EXAMINATION: Visual field intact, pupil reactive to light. Extraocular movements are normal. No facial sensory deficit. No facial asymmetry. Hearing is normal. Tongue is midline. Good gag. MOTOR EXAMINATION: Outstretched hands with eyes closed, no drift noted. Sensory: Tremor noted on both upper extremities. DEEP TENDON REFLEXES: Biceps, brachialis, triceps 1+. Both knees are absent, both ankles are absent. Plantars are downgoing. SENSORY EXAMINATION: Significant bilateral dissymmetric sensory and motor neuropathy. [id number] test is negative on both sides. GAIT: Is deferred at this time. CONCLUSION: Upon reviewing his history and neurological examination, the patient has been presenting with frequent falls, head trauma with abnormal CAT scan. Neurologic examination shows distal sensorimotor neuropathy secondary to his alcohol abuse in the past and diabetes mellitus. So, considering the history this is probably a post-concussion syndrome. The CAT scan has been reviewed, which showed atrophy with small left temporal convexity, curvilinear fashion of subdural hematoma noted. RECOMMENDATIONS: 1. Recurrent falls. The patient should have an electroencephalogram to rule out seizures versus nonconvulsive seizures. 2. MRI of the brain also recommended to rule out any structural cause for his fall. 3. The patient should have electrodiagnostic studies (electromyography/nerve conduction studies) that can be done as outpatient to assess his neuropathy. 4. Abstinence from illicit drugs have been discussed with the patient. His nutritional status should be improved, probably nutritional consultation is also recommended. The patient will be followed closely with you. Augie Tidwell MD cc: [id number] TT: 09/24/2016 19:28:06 Confirmation # [id number] Dictation # [id number] dn 09/25/2016 11:42:25 JOAQUIN
--- NOTE | 2016-09-25 15:38 | CP.PCM.PN ---
Subjective - Date & Time of Evaluation Date of Evaluation: 09/25/16 Time of Evaluation: 15:20 - Subjective Subjective: Progress note dictated #[id number] Objective - Vital Signs/Intake and Output Vital Signs (last 24 hours): Temp Pulse Resp BP Pulse Ox 97 F L 73 20 159/83 H 99 09/25/16 08:40 09/25/16 10:35 09/25/16 08:40 09/25/16 10:35 09/25/16 08:40 Intake and Output: 09/25/16 09/25/16 06:59 18:59 Intake Total 500 Balance 500 - Medications Medications: Current Medications Amlodipine Besylate (Norvasc) 10 mg PO DAILY [facility] Last Admin: 09/25/16 10:36 Dose: 10 mg Ceftriaxone Sodium 1 gm/ (Sodium Chloride) 100 mls @ 100 mls/hr IVPB DAILY [facility] Last Admin: 09/25/16 10:37 Dose: 100 mls/hr Insulin Aspart (Novolog) 12 unit SC AC [facility] Last Admin: 09/25/16 12:39 Dose: 12 unit Insulin Aspart (Novolog) 0 unit SC ACHS [facility] PRN Reason: Protocol Last Admin: 09/25/16 11:48 Dose: Not Given Insulin Glargine (Lantus) 40 unit SC HS [facility] Labetalol HCl (Trandate) 100 mg PO Q12 [facility] Last Admin: 09/25/16 10:36 Dose: 100 mg Metformin HCl (Glucophage) 1,000 mg PO BIDCC [facility] Last Admin: 09/25/16 09:00 Dose: 1,000 mg - Labs Labs: 09/24/16 06:11 09/24/16 06:10 PT 14.4 SECONDS (9.7-12.2) H 09/23/16 20:32 INR 1.3 09/23/16 20:32 APTT 30 SECONDS (21-34) 09/23/16 20:32
[2016-09-25] MEDS ORDERED: (Lantus) Insulin Glargine, Recombinant SC SCH (22:00)
--- NOTE | 2016-09-25 22:41 | PN ---
DATE: 09/25/2016 DATE OF SERVICE: 09/25/2016 SUBJECTIVE: The patient was seen and examined at bedside. The patient is still complaining of feeli ng sleepy and arousable, not cooperative, denies any complaints. PHYSICAL EXAMINATION: GENERAL: Middle-aged male lying in bed in no acute distress. VITAL SIGNS: Blood pressure 146/82, pulse 69, respirations 20, temperature 97.5 degrees Fahrenheit, O2 sat 100% on room air. HEENT: Pupils equal, reacting to light and accommodation, upper lid ecchymosis noted. NECK: Supple. LUNGS: Bilateral vesicular breath sounds. No wheezing, no rhonchi. CARDIOVASCULAR: S1, S2 present, regular. ABDOMEN: Soft, nontender. Bowel sounds present. No guarding, no rigidity, no rebound tenderness no pawel. CENTRAL NERVOUS SYSTEM: Sleepy, arousable, answering to questions, oriented x 2, moving all the extr emities. MEDICATIONS: Norvasc 10 mg daily, Rocephin 1 gram daily, insulin 12 units subQ, Lantus 40 units subQ at bedtime, labetalol 100 mg p.o. q. 12 hours, metformin 1000 mg p.o. b.i.d. LABORATORY DATA: Glucose 225, 187, 219, 206 and 170. ASSESSMENT AND PLAN: Middle-aged male with uncontrolled diabetes, asthma, noncompliant with medicati ons, unsteady gait, status post fall with questionable subdural hematoma versus possible dural thicke jeanine. On the CT, altered mental status, sinusitis. Leg ulcer. The patient is on insulin regimen, b lood pressure is still high. We will monitor on current treatment. Endocrinology, neurology consult s appreciated. Awaiting for ENT evaluation. We will continue with other current medication. Mel Solorio MD cc: [id number] TT: 09/25/2016 22:40:40 Confirmation # [id number] Dictation # [id number] tn
[2016-09-26 07:24] LABS: BASO % 0.2 % (0.0-2.0); EOS # 0.3 K/uL (0.0-0.7); EOS % 2.6 % (0.0-4.0); HEMATOCRIT 33.6 % (35.0-51.0); LYMPH # 1.5 K/uL (1.0-4.3); LYMPH % 15.2 % (20.0-40.0); MEAN CELL VOLUME 89.5 fL (80.0-94.0); MEAN CORPUSCULAR HEMOGLOBIN 32.1 pg (27.0-31.0); MEAN CORPUSCULAR HGB CONC 35.8 g/dL (33.0-37.0); MEAN PLATELET VOLUME 7.7 fL (7.2-11.7); MONO # 0.6 K/uL (0.0-0.8); MONO % 5.7 % (0.0-10.0); NRBC % 0.1 % (0.0-2.0); RED CELL DISTRIBUTION WIDTH 13.6 % (11.5-14.5); WHITE BLOOD COUNT 9.8 K/uL (4.8-10.8)
[2016-09-26 07:35] LABS: CHLORIDE 95 mmol/L (98-107); SODIUM 134 mmol/L (132-148)
[2016-09-26 07:36] LABS: POTASSIUM 3.7 mmol/L (3.6-5.2)
[2016-09-26 07:37] LABS: GFR AFRICAN-AMERICAN > 60
[2016-09-26 07:38] LABS: ALB/GLOB RATIO 0.5 (1.0-2.1); ALKALINE PHOSPHATASE 115 U/L (38-126); ALT/SGPT 35 U/L (21-72); AST/SGOT 71 U/L (17-59); BILIRUBIN,TOTAL 0.7 mg/dL (0.2-1.3); BLOOD UREA NITROGEN 19 mg/dL (9-20); CARBON DIOXIDE 27 mmol/L (22-30); GLUCOSE,RANDOM 136 mg/dL (75-110); TOTAL PROTEIN 7.6 g/dL (6.3-8.3)
[2016-09-26 07:39] LABS: CALCIUM 7.9 mg/dl (8.6-10.4)
[2016-09-26] MEDS: (Novolog) Insulin Aspart, Recombinant 100 u/ml 10 ml vial SC SCH ×4 (07:51→21:56)
[2016-09-26] MEDS ORDERED: (Lantus) Insulin Glargine, Recombinant SC SCH (08:49)
--- NOTE | 2016-09-26 11:57 | CP.PCM.PN ---
Subjective - Date & Time of Evaluation Date of Evaluation: 09/26/16 Time of Evaluation: 11:35 - Subjective Subjective: Progress note dictated #[id number] Objective - Vital Signs/Intake and Output Vital Signs (last 24 hours): Temp Pulse Resp BP Pulse Ox 97.6 F 75 18 136/82 99 09/26/16 09:05 09/26/16 09:05 09/26/16 09:05 09/26/16 09:05 09/26/16 09:05 - Medications Medications: Current Medications Amlodipine Besylate (Norvasc) 10 mg PO DAILY [facility] Last Admin: 09/26/16 09:07 Dose: 10 mg Glipizide (Glucotrol) 10 mg PO ACBD [facility] Ceftriaxone Sodium 1 gm/ (Sodium Chloride) 100 mls @ 100 mls/hr IVPB DAILY [facility] Last Admin: 09/26/16 09:07 Dose: 100 mls/hr Insulin Aspart (Novolog) 0 unit SC ACHS [facility] PRN Reason: Protocol Last Admin: 09/26/16 07:51 Dose: Not Given Insulin Glargine (Lantus) 12 unit SC HS [facility] Labetalol HCl (Trandate) 100 mg PO Q12 [facility] Last Admin: 09/26/16 09:07 Dose: 100 mg Sitagliptin Phosphate (Januvia) 100 mg PO ACB [facility] - Labs Labs: 09/26/16 07:08 09/26/16 07:08 PT 14.4 SECONDS (9.7-12.2) H 09/23/16 20:32 INR 1.3 09/23/16 20:32 APTT 30 SECONDS (21-34) 09/23/16 20:32
--- NOTE | 2016-09-26 13:14 | PN ---
DATE: 09/26/2016 ROOM: 671. SUBJECTIVE: This is a 56-year-old male with recent uncontrolled type 2 insulin-requiring diabetes, n ow being followed closely for metabolic management. He initially had hyperglycemic accelerations wit h underlying hyperosmolar hyperglycemic state and dehydration and has remarkably improved over the or so with supervening low normal glycemic values as noted overnight. His glucose values toda y have ranged from 125-132 mg/dL. It was 63 yesterday as noted. Latest chemistries showed a BUN of 19, sodium 134, potassium 3.7, chloride 95, CO2 27, glucose 136 and creatinine 1.0. So at this time, we will actually be adding oral hypoglycemic drug therapy with glipizide to be given as 10 mg a.c. b reakfast and a.c. dinner to start today. We will also be adding Januvia as 100 mg once daily before breakfast as ordered. This will be started tomorrow morning as given. We will discontinue the Lesa Log given before each meal as ordered at this time. We will also lower the Lantus to 12 units subQ a t bedtime daily to start tonight. We will continue the low-dose correction scale using NovoLog insul in as given. We will follow and advise accordingly. Gayle Botello MD cc: [id number] TT: 09/26/2016 13:13:43 Confirmation # [id number] Dictation # [id number] kris
--- NOTE | 2016-09-26 14:24 | PN ---
DATE: 09/26/2016 NEUROLOGICAL PROBLEM: Syncopal attack. PHYSICAL EXAMINATION: VITAL SIGNS: Blood pressure 138/80, mean arterial pressure of 99, respiratory rate 20, temperature 9 8.2, pulse rate 68, regular. NEUROLOGIC: The patient is more awake, alert, sitting comfortably in the bed and eating his food. The patient's examination is unchanged. His raccoon eyes are slightly improving. Edema around the l betty also improving. Present glucose is 282. Please continue the present management. The workup which was requested is still pending. Augie Tidwell MD cc: [id number] TT: 09/26/2016 14:23:53 Confirmation # [id number] Dictation # [id number] en
--- NOTE | 2016-09-26 16:45 | EEG ---
DATE: 09/24/2016 This is a 16-channel electroencephalogram of awake and drowsy adult. During the study, photic stimul ation was performed. Hyperventilation was not performed. The resting electroencephalogram consists of low amplitude diffuse 5-6 Hz theta activities noted. Th ere is intermittent low amplitude delta activities noted consistent with early drowsiness. This slow activity is continuously noted from the beginning. Some movement artifact intermittently contaminat ed the background rhythm. The photic stimulation did not evoke driving response noted at 2-20 Hz. IMPRESSION: This is an abnormal electroencephalogram because of persistent slowing throughout the re cord suggestive of bilateral cerebral dysfunction. This is probably secondary to metabolic, vascular or degenerative process. Please correlate the finding with neurologic and radiologic studies. Augie Tidwell MD cc: [id number] TT: 09/26/2016 16:45:04 Confirmation # [id number] Dictation # [id number] en
--- NOTE | 2016-09-26 20:32 | PN ---
DATE: 09/26/2016 SUBJECTIVE: The patient was seen and examined this morning. The patient is more alert and awake, but still only oriented x 2. No other complaints. PHYSICAL EXAMINATION: GENERAL: Middle-aged male, lying in bed, in no acute distress. VITAL SIGNS: Blood pressure 138/81, pulse 67, respirations 18, temperature 97.5 degrees Fahrenheit, O2 sat 100% on room air. HEENT: Pupils equal, reacting to light and accommodation. Extraocular muscles intact. No icterus. Ecchymosis of the upper eyelid is noted. NECK: Supple. LUNGS: Bilateral vesicular breath sounds. No wheezing, no rhonchi. CARDIOVASCULAR: S1, S2 present, regular. ABDOMEN: Soft, nontender. Bowel sounds present. No guarding, no rigidity, no rebound tenderness no pawel. CENTRAL NERVOUS SYSTEM: Alert, awake, oriented x 2. EXTREMITIES: The left leg ulcer noted with a dressing in place. MEDICATIONS: Norvasc 10 mg daily, Rocephin 1 gram IV daily, Glucotrol 10 mg p.o. b.i.d., Lantus 12 units subQ at b edtime, labetalol 100 mg p.o. q. 12 hours, Januvia 100 mg p.o. daily. LABORATORY DATA: WBC 9.8, hemoglobin 12.1, hematocrit 33.6, platelets 117. Sodium 134, potassium 3.7, chloride 95, bi carbonate 27, BUN 19, creatinine 1.0, glucose 132. AST 71, ALT 35, alkaline phosphatase 115, total p rotein 7.6, albumin 2.6. ASSESSMENT AND PLAN: Middle-aged male with hypertension, diabetes mellitus, asthma, status post multiple falls, admitted f or questionable subdural hematoma versus dural thickening and sinusitis, left leg ulcer, altered ment al status. Continue with current hypoglycemic medication as per endocrinology. Awaiting for ENT diana melchor. Neurology input appreciated. The patient does not have a place to go. We will request soc ial services for discharge planning. We will request psychiatry for competency. Will continue with current medication, continue with physical therapy. Mel Solorio MD cc: [id number] TT: 09/26/2016 20:32:00 Confirmation # [id number] Dictation # [id number] hn
[2016-09-27] MEDS: (Novolog) Insulin Aspart, Recombinant 100 u/ml 10 ml vial SC SCH ×5 (08:15→22:24)
--- NOTE | 2016-09-27 08:23 | PN ---
DATE: 09/25/2016 This is a redictation, initial was cut off. ROOM: [facility] SUBJECTIVE: This is a 56-year-old male with recent uncontrolled type 2 insulin-requiring diabetes, p resenting here with marked hyperglycemic accelerations and is now being followed closely for metaboli c management. He also continues to have altered mental status with confusion, restlessness and agita tion and interspersed with longed bouts of hypersomnolent and lethargy at the bedside. However about 50% of ____ as per the nursing staff. ____ His latest chemistries showed glucose values ranging to day from 219 to 206 mg/dL. It was 187 to 225 to 425 last night as noted. Hemoglobin A1c of 14.7% wh ich is quite elevated. BUN of 23, sodium 133, potassium 4.0, chloride ____, CO2 is 25, glucose is 36 8. So at this time, we will increase the Lantus to 40 units subQ at bedtime daily to start tonight. NovoLog given as 12 units subQ t.i.d. before meals as ordered. We will titrate incrementally as ind icated to optimize metabolic control. We will follow and advice accordingly. Gayle Botello MD cc: [id number] TT: 09/25/2016 15:06:57 Confirmation # [id number] Dictation # [id number] bay
--- NOTE | 2016-09-27 08:35 | PN ---
DATE: 09/25/2016 TIME OF EVALUATION: 3:30 p.m. NEUROLOGICAL PROBLEM: Post-concussion syndrome. VITAL SIGNS: Blood pressure 146/80, mean arterial pressure of 103, respiratory rate 16, temperature 97.5 with a pulse rate at 69, regular. The patient is sleeping, easily arousable on calling his name. He denies any complaints. No headach e, no dizziness. He moves all 4 extremities against gravity. The rest of the examinations are uncha nged. His current sugar is 170, which is stable. The patient is recommended to have MRI of the brain, which is pending. Otherwise, the patient is kirill rologically stable. Augie Tidwell MD cc: [id number] TT: 09/25/2016 19:10:20 Confirmation # [id number] Dictation # [id number] bay
--- NOTE | 2016-09-27 12:09 | CP.PCM.PN ---
Subjective - Date & Time of Evaluation Date of Evaluation: 09/27/16 Time of Evaluation: 11:20 - Subjective Subjective: Progress note dictated # [id number] Objective - Vital Signs/Intake and Output Vital Signs (last 24 hours): Temp Pulse Resp BP Pulse Ox 97.2 F L 60 20 163/90 H 100 09/27/16 08:35 09/27/16 08:35 09/27/16 08:35 09/27/16 08:35 09/27/16 08:35 - Medications Medications: Current Medications Amlodipine Besylate (Norvasc) 10 mg PO DAILY [facility] Last Admin: 09/27/16 09:27 Dose: 10 mg Glipizide (Glucotrol) 10 mg PO ACBD [facility] Last Admin: 09/27/16 08:14 Dose: 10 mg Ceftriaxone Sodium 1 gm/ (Sodium Chloride) 100 mls @ 100 mls/hr IVPB DAILY [facility] Last Admin: 09/27/16 09:28 Dose: 100 mls/hr Insulin Aspart (Novolog) 0 unit SC ACHS [facility] PRN Reason: Protocol Last Admin: 09/27/16 08:15 Dose: Not Given Insulin Glargine (Lantus) 12 unit SC HS [facility] Last Admin: 09/26/16 21:55 Dose: 12 u Labetalol HCl (Trandate) 100 mg PO Q12 [facility] Last Admin: 09/27/16 09:29 Dose: 100 mg Sitagliptin Phosphate (Januvia) 100 mg PO ACB [facility] Last Admin: 09/27/16 08:13 Dose: 100 mg - Labs Labs: 09/26/16 07:08 09/26/16 07:08 PT 14.4 SECONDS (9.7-12.2) H 09/23/16 20:32 INR 1.3 09/23/16 20:32 APTT 30 SECONDS (21-34) 09/23/16 20:32
--- NOTE | 2016-09-27 12:40 | PCM.PSYCH ---
Initial Psychiatric Evaluation - Initial Psychiatric Evaluation Type of Admission: Voluntary Legal Status: Capacity Chief Complaint (in patient's own words): I've been having trouble with my memory History of Present Illness and Precipitating Events: Pt seen, chart reviewed, and case discussed with team. Pt wad admitted to 09/23/2016 for possible subdural hematoma 2/2 fall x2 in [facility], psych was consulted to evaluate pt's mental competency due to continued confusion. The pt was seen today by the psych team was easily arousable, but appeared to be drowsy and tired. The pt has bruises on his face, but does not seem to have any over trauma or injury anywhere else to his body. the pt is AAOx2, is homeless and a poor historian but reports that he was at a hospital in [place] that had given him diabetes medication and sent him home. The pt was then found on the street but cannot recall how he was brought into , but only that he was brought here to get more treatment for his diabetes. The pt is slow to respond to questions and becomes mildly agitated when pressed for answers, but is otherwise cooperative. The pt thought process is intact but requires sometime to think and obtain the answer. He reports that he has never had trouble with this thinking or his memory and that this has only happened in the last few weeks to months, the pt cannot report an inciting factor as to why this may have happened. The pt otherwise denies auditory/visual hallucinations, delusions , homicidal ideation, suicidal ideation. As per the medical doctor patient fell 2 times in the hospital, and hit his head. That can be contributory factor to his confusion. Psych: none PMH: Asthma, DM, HTN Hospitalizations: denies Meds: Metformin Allergies: Shellfish, NKDA Social: denies EtOH, nicotine. Insufflates 2-3 bags of heroin daily. Current Medications: Active Medications Generic Name Dose Route Start Last Admin Trade Name Freq PRN Reason Stop Dose Admin Amlodipine Besylate 10 mg 09/24/16 12:45 09/27/16 09:27 Norvasc PO 10 mg DAILY [facility] Administration Glipizide 10 mg 09/26/16 16:30 09/27/16 08:14 Glucotrol PO 10 mg ACBD [facility] Administration Ceftriaxone Sodium 1 gm/ 100 mls @ 100 mls/hr 09/23/16 23:45 09/27/16 09:28 Sodium Chloride IVPB 100 mls/hr DAILY [facility] Administration Insulin Aspart 0 unit 09/24/16 16:30 09/27/16 08:15 Novolog SC Not Given ACHS [facility] Protocol Insulin Glargine 12 unit 09/26/16 08:49 09/26/16 21:55 Lantus SC 12 u HS [facility] Administration Labetalol HCl 100 mg 09/24/16 22:00 09/27/16 09:29 Trandate PO 100 mg Q12 [facility] Administration Sitagliptin Phosphate 100 mg 09/27/16 07:30 09/27/16 08:13 Januvia PO 100 mg ACB [facility] Administration Past Psychiatric History - Past Psychiatric History Previous Treatment History: None Pertinent Medical Hx (Current Medical&Sleep Prob, Allergies): Allergies Allergy/AdvReac Type Severity Reaction Status Date / Time shellfish derived Allergy Intermediate RASH Verified 09/23/16 09:43 MetFORMIN [glucoPHAGE] 1,000 mg PO BID #60 tab 01/29/16 Buprenorphine HCl/Naloxone HCl [Suboxone 8 mg-2 mg Sl Film] 1 each SL DAILY 04/03 Review of Systems - Review of Systems All systems: reviewed and no additional remarkable complaints except - Neurological Neurological: UNREMARKABLE - Psychiatric Psychiatric: Confusion, Difficulty Concentrating, Irritability, Memory Loss. absent: Auditory Hallucinations, Depression, Hallucinations, Mood Swings, Panic Attacks, Suicidal Ideation, Visual Hallucinations, Tactile Hallucinations Mental Status Examination - Personal Presentation Personal Presentation: Looks younger than stated age - Affect Affect: Flat - Motor Activity Motor Activity: Calm - Reliability in Providing Information Reliability in Providing Information: Poor, due to cognitve impairment - Speech Speech: Organized - Mood Mood: Neutral - Formal Thought Process Formal Thought Process: No Impairment - Obsessions/Compulsions Obsessions: No Compulsions: No - Cognitive Functions Orientation: Person, Place Sensorium: Drowsy Attention/Concentration: Attentive Abstract Thinking: [facility] Estimate of Intelligence: Below average Judgement: Imparied, as evidence by: Poor judgement, Intact, as evidence by: Insight regarding need for hospitalization Memory: Recent impaired, as evidence by: Inability to recall events of the day, Remote impaired as evidenced by: Inability to recall historical events - Risk Risk: Falls, Diminished functioning - Limitations Limitations: Living alone DSM 5 DX - DSM 5 DSM 5 Diagnosis: Delirium secondary to general medical condition - Recommended/Plan of Treatment Treatment Recommendations and Plan of Treatment: Delirium secondary to general medical condition it seems like patient is somewhat forgetful and delirious. however he has the capacity to make decisions. - Smoking Cessation Smoking Cessation Initiated: No
--- NOTE | 2016-09-27 12:40 | PCM.PSYCH ---
Initial Psychiatric Evaluation - Initial Psychiatric Evaluation Type of Admission: Voluntary Legal Status: Capacity Current Medications: Active Medications Generic Name Dose Route Start Last Admin Trade Name Ellis PRN Reason Stop Dose Admin Amlodipine Besylate 10 mg 09/24/16 12:45 09/27/16 09:27 Norvasc PO 10 mg DAILY YEISON Administration Glipizide 10 mg 09/26/16 16:30 09/27/16 08:14 Glucotrol PO 10 mg ACBD YEISON Administration Ceftriaxone Sodium 1 gm/ 100 mls @ 100 mls/hr 09/23/16 23:45 09/27/16 09:28 Sodium Chloride IVPB 100 mls/hr DAILY YEISON Administration Insulin Aspart 0 unit 09/24/16 16:30 09/27/16 08:15 Novolog SC Not Given ACHS YEISON Protocol Insulin Glargine 12 unit 09/26/16 08:49 09/26/16 21:55 Lantus SC 12 u HS YEISON Administration Labetalol HCl 100 mg 09/24/16 22:00 09/27/16 09:29 Trandate PO 100 mg Q12 YEISON Administration Sitagliptin Phosphate 100 mg 09/27/16 07:30 09/27/16 08:13 Januvia PO 100 mg ACB YEISON Administration Past Psychiatric History - Past Psychiatric History Pertinent Medical Hx (Current Medical&Sleep Prob, Allergies): Allergies Allergy/AdvReac Type Severity Reaction Status Date / Time shellfish derived Allergy Intermediate RASH Verified 09/23/16 09:43 MetFORMIN [glucoPHAGE] 1,000 mg PO BID #60 tab 01/29/16 Buprenorphine HCl/Naloxone HCl [Suboxone 8 mg-2 mg Sl Film] 1 each SL DAILY 04/03
--- NOTE | 2016-09-27 13:24 | CON ---
DATE: 09/27/2016 REASON FOR CONSULTATION: Sinusitis. HISTORY: This is a 56-year-old male who was noted to have opacification of the sinuses on head CT. The patient does not complain of any congestion. No nasal discharge, no headaches, no facial pain. PAST MEDICAL HISTORY: As noted in the chart by me. MEDICATIONS: As noted in the chart by me. PHYSICAL EXAMINATION: HEAD: Atraumatic, normocephalic. FACE: Good facial movements bilaterally. CONSTITUTIONAL: Well-developed, well-nourished. COMMUNICATION: Communicates very appropriately. EXTERNAL NOSE AND EARS: No masses, no lesions, no erythema, no edema. INTERNAL NOSE: Deviated septum, no masses, no lesions. There is erythema and edema of the mucosa, m ild to moderate in intensity. ORAL CAVITY, OROPHARYNX: No masses, no lesions, no erythema, no edema. LIPS, GUMS: No masses, no lesions, no erythema, no edema. NECK: Supple. THYROID: No thyromegaly, no goiter. LYMPH NODES: No lymphadenopathy of the neck. CAT scan images were noted by me. ASSESSMENT: 1. Deviated septum. 2. Sinusitis. 3. On antibiotics for 2 weeks total. Follow up in the office as an outpatient. Robbin Hilario MD cc: [phone] TT: 09/27/2016 13:23:31 Confirmation # [id number] Dictation # [id number] sn
--- NOTE | 2016-09-27 17:23 | PN ---
DATE: 09/27/2016 ROOM: 671. This is a 56-year-old male with recent uncontrolled type 2 insulin-requiring diabetes, now being foll owed closely for metabolic management. He has extremes of glycemic fluctuations from hypoglycemia to hyperglycemic accelerations with a variability of his oral intake. His glucose values today are fluctuating and have ranged from 276-349 and 404 mg/dL. His latest chem istries include a BUN of 19, sodium 134, potassium 3.7, chloride 95, CO2 27, glucose 136, and creatin ine 1.0. So at this time, will modify his current insulin regimen and actually add the NovoLog given before me altimes with a dose of NovoLog at 8 units subQ t.i.d. before meals to start at dinnertime today as or dered. Will also continue the low-dose correction scale using NovoLog insulin as given. Will also i ncrease the Lantus given as basal insulin to 16 units subQ at bedtime daily to start tonight. Will a lso continue the oral hypoglycemic drug therapy as given with glipizide given as 10 mg b.i.d. before meals and Januvia given as 100 mg before breakfast daily as ordered. Will titrate incrementally as i ndicated to optimize metabolic control. Will encourage oral intake on a consistent level as indicate d. Will obtain serial chemistries and supplement accordingly as needed. Will follow. Gayle Botello MD cc: [id number] TT: 09/27/2016 17:22:49 Confirmation # [id number] Dictation # [id number]
[2016-09-27] MEDS ORDERED: (Lantus) Insulin Glargine, Recombinant SC SCH (22:00)
--- NOTE | 2016-09-27 22:27 | PN ---
DATE: 09/27/2016 The patient was seen and examined at bedside. The patient offers no complaints. Lying in bed, sleep y, arousable, responding to questions. PHYSICAL EXAMINATION: GENERAL: Middle-aged male lying in bed in no acute distress. VITAL SIGNS: Blood pressure 135/79, pulse 74, respirations 20, temperature 98 degrees Fahrenheit, O2 sat is 100% on room air. HEENT: Pupils equal, reacting to light and accommodation. Ecchymosis of both upper eyelids. No ora l thrush. No pharyngeal congestion. No nasal congestion. NECK: Supple. No JVD. LUNGS: Bilateral vesicular breath sounds. No wheezing, no rhonchi. CARDIOVASCULAR: S1, S2 present, regular. ABDOMEN: Soft, nontender. Bowel sounds present. No guarding, no rigidity, no rebound tenderness no pawel. CENTRAL NERVOUS SYSTEM: Alert, awake, oriented x 2. No focal deficits noted. EXTREMITIES: Left leg ulcer with a dressing in place. MEDICATIONS: Include Norvasc 10 mg daily, Rocephin 1 gram IV daily, Glucotrol 10 mg p.o. b.i.d., Nov oLog 8 units subQ before meals, Lantus 16 units subQ at bedtime, labetalol 100 mg p.o. q.12 hours, Ja mehdi 100 mg p.o. daily. LABORATORY DATA: His glucose is 284, 349, 276, 404, 311. C. diff toxin is negative. ASSESSMENT AND PLAN: Middle-aged male with hypertension and diabetes mellitus, uncontrolled, status post fall, sinusitis and left leg ulcer. The patient is evaluated by psychiatry and ear, nose, and t hroat. Continue with current antibiotics. We will switch to p.o. antibiotics in a.m. The patient i s still forgetful at times. Psychiatry claims that patient has capacity to make his own decision. S ial services made arrangements for subacute rehab placement, awaiting for prior authorization. We will continue with current insulin regimen which was adjusted by endocrinology. Continue with ke bojorquez antihypertensive medication. Follow up with pediatric social worker for discharge planning. Mel Solorio MD cc: :[id number]:[id number] TT: 09/27/2016 22:26:22 Confirmation # [id number] Dictation # [id number] sn
[2016-09-28] MEDS: (Novolog) Insulin Aspart, Recombinant 100 u/ml 10 ml vial SC SCH ×7 (07:46→22:00)
[2016-09-28 07:48] LABS: CHLORIDE 96 mmol/L (98-107); POTASSIUM 3.5 mmol/L (3.6-5.2); SODIUM 132 mmol/L (132-148)
[2016-09-28 07:51] LABS: ALB/GLOB RATIO 0.5 (1.0-2.1); ALKALINE PHOSPHATASE 117 U/L (38-126); ALT/SGPT 31 U/L (21-72); AST/SGOT 52 U/L (17-59); BILIRUBIN,TOTAL 1.1 mg/dL (0.2-1.3); BLOOD UREA NITROGEN 17 mg/dL (9-20); CARBON DIOXIDE 24 mmol/L (22-30); GFR AFRICAN-AMERICAN > 60; GLUCOSE,RANDOM 184 mg/dL (75-110); TOTAL PROTEIN 7.3 g/dL (6.3-8.3)
[2016-09-28 07:52] LABS: CALCIUM 7.3 mg/dl (8.6-10.4)
--- NOTE | 2016-09-28 14:52 | CARD ---
APPROVED REPORT EKG Measurement Heart [id number] <Conclusion> ectopic atrial rythm short GA
--- NOTE | 2016-09-28 15:55 | PN ---
DATE: 09/28/2016 ROOM: 671 This is a 56-year-old male with recent uncontrolled type 2 insulin-requiring diabetes with extremes o f glycemic fluctuations from hypo- to hyperglycemic accelerations related to the very variable oral i ntake at this time with underlying increased insulin resistance thereof. His glycemic levels today have ranged from 223-276 mg/dL. It was 200-311 last night as noted. The l atest chemistry showed a BUN of 17, sodium 132, potassium 3.5, chloride 96, CO2 24, glucose 184 and c reatinine 0.9. So at this time, will modify his basal insulin and increase the Lantus to 20 units subQ at bedtime da jonah to start tonight. Will continue his NovoLog given as 10 units subQ t.i.d. before meals to start at dinnertime today as ordered. Will continue the low-dose correction scale using NovoLog insulin as given. Will also continue the oral hypoglycemic drug therapy with Januvia given as 100 mg daily and glipizide given as 10 mg b.i.d. before meals as ordered. Will titrate incrementally as indicated to optimize metabolic control. Will follow and advise accordingly. Gayle Botello MD cc: [phone] TT: 09/28/2016 15:54:36 Confirmation # [id number] Dictation # [id number]
[2016-09-28] MEDS ORDERED: (Lantus) Insulin Glargine, Recombinant SC SCH (22:00)
[2016-09-29] MEDS: (Novolog) Insulin Aspart, Recombinant 100 u/ml 10 ml vial SC SCH ×7 (08:12→21:21)
--- NOTE | 2016-09-29 11:08 | CP.PCM.PN ---
Subjective - Date & Time of Evaluation Date of Evaluation: 09/29/16 Time of Evaluation: 11:00 - Subjective Subjective: Progress note dictated #[id number] Objective - Vital Signs/Intake and Output Vital Signs (last 24 hours): Temp Pulse Resp BP Pulse Ox 98.8 F 78 20 135/83 97 09/28/16 23:05 09/28/16 23:05 09/28/16 23:05 09/28/16 23:05 09/28/16 23:05 Intake and Output: 09/29/16 09/29/16 06:59 18:59 Intake Total 840 Balance 840 - Medications Medications: Current Medications Amlodipine Besylate (Norvasc) 10 mg PO DAILY YEISON Last Admin: 09/28/16 10:05 Dose: 10 mg Amoxicillin/Clavulanate Potassium (Augmentin 875 Mg-125 Mg Tab) 1 tab PO BID YEISON Glipizide (Glucotrol) 10 mg PO ACBD YEISON Last Admin: 09/29/16 08:26 Dose: Not Given Insulin Aspart (Novolog) 0 unit SC ACHS YEISON PRN Reason: Protocol Last Admin: 09/29/16 08:12 Dose: Not Given Insulin Aspart (Novolog) 4 unit SC AC YEISON Insulin Glargine (Lantus) 14 unit SC HS YEISON Labetalol HCl (Trandate) 100 mg PO Q12 YEISON Last Admin: 09/28/16 22:21 Dose: 100 mg Sitagliptin Phosphate (Januvia) 100 mg PO ACB YEISON Last Admin: 09/29/16 08:27 Dose: Not Given - Labs Labs: 09/26/16 07:08 09/28/16 07:18 PT 14.4 SECONDS (9.7-12.2) H 09/23/16 20:32 INR 1.3 09/23/16 20:32 APTT 30 SECONDS (21-34) 09/23/16 20:32
[2016-09-29] MEDS: Amoxicillin-Clav 875-125 mg Tab PO SCH ×2 (11:38→19:00)
--- NOTE | 2016-09-29 12:09 | PN ---
DATE: 09/29/2016 The patient is seen and examined at bedside. He is complaining of loose bowel moments. Denies any n ausea, vomiting, abdominal pain. Denies any headache, dizziness. Denies any chest pain, requesting for nicotine patch. PHYSICAL EXAMINATION: GENERAL: Middle-aged male lying in bed in no acute distress. VITAL SIGNS: Blood pressure 135/83, pulse 78, respirations 20, temperature 98.8 degrees Fahrenheit, O2 sat is 97% on room air. HEENT: Pupils reacting to light and accommodation. Extraocular muscles intact. Ecchymosis of the u pper lids noted. No oral thrush. No pharyngeal congestion. NECK: Supple. No JVD. LUNGS: Bilateral vesicular breath sounds. No wheezing, no rhonchi. CARDIOVASCULAR: S1, S2 present, regular. ABDOMEN: Soft, nontender. Bowel sounds present. No guarding, no rigidity, no rebound tenderness no pawel. CENTRAL NERVOUS SYSTEM: Sleepy, arousable, answering to questions appropriately, moving all the extr emities. EXTREMITIES: Left leg ulcers noted. MEDICATIONS: Include Norvasc 10 mg daily, Augmentin 875 mg p.o. b.i.d., Glucotrol 10 mg p.o. b.i.d., NovoLog 4 units subQ a.c., Lantus 14 units subQ at bedtime, labetalol 100 mg p.o. q. 12 hours, Januv ia 100 mg p.o. daily. LABORATORY DATA: No new labs from this morning. Accu-Cheks 223, 276, 112, and 76. ASSESSMENT AND PLAN: Middle-aged male with hypertension, diabetes mellitus, sinusitis, left leg ulce rs, status post fall. CT is possible dural thickening rather than subdural hematoma. Loose stools, rule out Clostridium difficile colitis which was done earlier and it was negative. The patient's blo od pressure is controlled. Accu-Cheks are still high, his insulin regimen adjusted. We will continu e with current antibiotics. We will discontinue 1:1, start nicotine patch. Check Clostridium diffic ile toxin. Discussed with case management for discharge planning. The patient is otherwise stable a nd cleared by all the consultants for discharge. The patient may be transferred to subacute rehab wh en bed available. Mel Solorio MD cc: [phone] TT: 09/29/2016 12:09:47 Confirmation # [id number] Dictation # [id number]
--- NOTE | 2016-09-29 16:26 | PN ---
DATE: 09/29/2016 ENDO FOLLOWUP NOTE ROOM: 671. SUBJECTIVE: This is a 56-year-old male with recent uncontrolled type 2 insulin-requiring diabetes wi th extremes of glycemic fluctuations ranging from hypo to hyperglycemic accelerations depending on th e variability of his oral intake as noted thereof. His glucose values today have been much lower ran ging from 52 early this morning to 76 after repeated, and was 184 at lunchtime today as noted. He ac tually did not take any breakfast as per the nursing staff. His glucose values last night ranged fro m 112-276 mg/dL. So at this time, we will modify his basal and bolus insulin regimen and lower the Lantus to 14 units subQ at bedtime daily as given. We will also lower the NovoLog to 4 units subQ t.i.d. before meals a s ordered. We will continue the Januvia given as 100 mg daily and glipizide given as 10 mg b.i.d. be fore meals. We will obtain serial chemistries and supplement accordingly as needed. We will follow. Gayle Botello MD cc: [phone] TT: 09/29/2016 16:26:01 Confirmation # [id number] Dictation # [id number] bay
[2016-09-29 17:05] LABS: BASO # 0.1 K/uL (0.0-0.2); BASO % 0.6 % (0.0-2.0); EOS # 0.1 K/uL (0.0-0.7); EOS % 0.8 % (0.0-4.0); HEMATOCRIT 31.1 % (35.0-51.0); LYMPH # 1.3 K/uL (1.0-4.3); LYMPH % 10.4 % (20.0-40.0); MEAN CELL VOLUME 91.4 fL (80.0-94.0); MEAN CORPUSCULAR HEMOGLOBIN 31.1 pg (27.0-31.0); MEAN PLATELET VOLUME 8.9 fL (7.2-11.7); MONO # 0.8 K/uL (0.0-0.8); MONO % 6.5 % (0.0-10.0); RED CELL DISTRIBUTION WIDTH 13.4 % (11.5-14.5); WHITE BLOOD COUNT 12.5 K/uL (4.8-10.8)
[2016-09-29 17:11] LABS: CHLORIDE 90 mmol/L (98-107); POTASSIUM 4.5 mmol/L (3.6-5.2); SODIUM 127 mmol/L (132-148)
[2016-09-29 17:14] LABS: BLOOD UREA NITROGEN 17 mg/dL (9-20); CARBON DIOXIDE 23 mmol/L (22-30); GFR AFRICAN-AMERICAN > 60
[2016-09-29 17:15] LABS: CALCIUM 7.3 mg/dl (8.6-10.4); GLUCOSE,RANDOM 229 mg/dL (75-110)
[2016-09-29] MEDS ORDERED: (Lantus) Insulin Glargine, Recombinant SC SCH (22:00)
[2016-09-30] MEDS: (Novolog) Insulin Aspart, Recombinant 100 u/ml 10 ml vial SC SCH ×7 (08:11→22:47)
--- NOTE | 2016-09-30 10:28 | CP.PCM.PN ---
Subjective - Date & Time of Evaluation Date of Evaluation: 09/30/16 Time of Evaluation: 10:20 - Subjective Subjective: Progress note dictated #[id number] Objective - Vital Signs/Intake and Output Vital Signs (last 24 hours): Temp Pulse Resp BP Pulse Ox 98.4 F 86 20 134/78 96 09/30/16 08:00 09/30/16 08:00 09/30/16 08:00 09/30/16 08:00 09/30/16 08:00 Intake and Output: 09/30/16 09/30/16 06:59 18:59 Intake Total 360 Output Total 550 Balance -190 - Medications Medications: Current Medications Amlodipine Besylate (Norvasc) 10 mg PO DAILY [facility] Last Admin: 09/29/16 11:41 Dose: 10 mg Amoxicillin/Clavulanate Potassium (Augmentin 875 Mg-125 Mg Tab) 1 tab PO BID [facility] Last Admin: 09/29/16 19:00 Dose: 1 tab Glipizide (Glucotrol) 10 mg PO ACBD [facility] Last Admin: 09/30/16 08:44 Dose: 10 mg Insulin Aspart (Novolog) 0 unit SC ACHS [facility] PRN Reason: Protocol Last Admin: 09/30/16 08:11 Dose: Not Given Insulin Aspart (Novolog) 6 unit SC AC YEISON Last Admin: 09/30/16 08:43 Dose: 6 unit Insulin Glargine (Lantus) 14 unit SC HS [facility] Last Admin: 09/29/16 21:19 Dose: 14 u Labetalol HCl (Trandate) 100 mg PO Q12 [facility] Last Admin: 09/29/16 21:22 Dose: 100 mg Sitagliptin Phosphate (Januvia) 100 mg PO ACB [facility] Last Admin: 09/30/16 08:44 Dose: 100 mg - Labs Labs: 09/29/16 17:00 09/29/16 17:00 PT 14.4 SECONDS (9.7-12.2) H 09/23/16 20:32 INR 1.3 09/23/16 20:32 APTT 30 SECONDS (21-34) 09/23/16 20:32
[2016-09-30] MEDS: Amoxicillin-Clav 875-125 mg Tab PO SCH ×2 (10:32→17:58)
[2016-09-30 11:44] LABS: CHLORIDE 89 mmol/L (98-107); POTASSIUM 4.1 mmol/L (3.6-5.2); SODIUM 124 mmol/L (132-148)
[2016-09-30 11:46] LABS: GFR AFRICAN-AMERICAN > 60
[2016-09-30 11:47] LABS: BLOOD UREA NITROGEN 17 mg/dL (9-20); CALCIUM 7.1 mg/dl (8.6-10.4); CARBON DIOXIDE 25 mmol/L (22-30); GLUCOSE,RANDOM 228 mg/dL (75-110)
[2016-09-30 13:34] LABS: URIC ACID 4.4 mg/dL (3.5-8.5)
[2016-09-30 14:06] LABS: THYROID STIMULATING HORMONE 3.67 mIU/L (0.46-4.68)
[2016-09-30] MEDS: Sodium Chloride 0.9% 1,000 ML IV SCH (14:34)
--- NOTE | 2016-09-30 17:35 | PN ---
DATE: 09/30/2016 Room 359 This is a 56-year-old male with recent uncontrolled type 2 insulin-requiring diabetes, now being foll owed closely for metabolic management. His glycemic levels are fluctuating, related to the variabili ty of his oral intake as noted. His latest chemistries today showed a BUN of 17, sodium 124, potassium 4.1, chloride 89, CO2 of 25, g lucose 228, and creatinine 1.0. So, his glucose values have ranged from 255-270 mg/dL today. It was still 316 at bedtime last night as noted. So at this time, will modify his basal and bolus insulin regimen and increase the Lantus to 20 units subQ at bedtime daily to start tonight. Will also increase the prandial or mealtime insulin with Nov oLog to be given as 8 units subQ t.i.d. before meals as ordered. Will continue the oral hypoglycemic drug therapy given in combination with glipizide given as 10 mg b.i.d. and Januvia at 100 mg once da jonah as ordered. Will titrate incrementally as indicated to optimize metabolic control. Will follow and advise accordingly. Gayle Botello MD cc: [phone] TT: 09/30/2016 17:34:30 Confirmation # [id number] Dictation # [id number] bay
[2016-09-30] MEDS: (Lantus) Insulin Glargine, Recombinant SC SCH (22:00)
--- NOTE | 2016-09-30 22:04 | PN ---
DATE: 09/30/2016 The patient was seen and examined at bedside. The patient is still sleepy, lying in bed; waking up u trevor calling by his name, claiming that he did not have bowel movement today. Denies any headache, di zziness. Denies any chest pain, shortness of breath, or wheezing. Denies any nausea, vomiting, abdo alla pain. Denies any urinary complaints. Denies any leg pains or leg cramps. All other systems r eviewed. On examination, a middle-aged male lying in bed in no acute distress. Blood pressure 120/79, pulse 77, respirations 20, temperature 98.5 degrees Fahrenheit, O2 sats 96% on room air. HEENT: Pupils equal, reacting to light and accommodation. Ecchymosis of the upper lids. No oral th rizzo, no pharyngeal congestion. Mucous membranes moist. NECK: Supple. No JVD. LUNGS: Bilateral vesicular breath sounds. No wheezing, no rhonchi. CARDIOVASCULAR SYSTEM: S1, S2 present, regular. ABDOMEN: Soft, nontender. Bowel sounds present. No guarding, no rigidity, no rebound tenderness no pawel. CENTRAL NERVOUS SYSTEM: Awake, oriented x 2. No focal deficits noted. EXTREMITIES: Left leg ulcer with a dressing in place. MEDICATIONS: Include amlodipine 10 mg daily, Augmentin 875 mg p.o. b.i.d., glipizide 10 mg p.o. b.i. d., NovoLog 8 units subQ, Lantus 20 units subQ, labetalol 100 mg p.o. q. 12 hours, Nicoderm patch, Ja mehdi 100 mg p.o. daily. LABORATORIES FROM THIS MORNING: Sodium 124, potassium 4.1, chloride 89, bicarb 25, BUN 13, creatinin e 1.0, glucose 270, 228. Uric acid 4.4, calcium 7.1. TSH 3.67. CHEST X-RAY: No focal infiltrate, bilateral pleural thickening with upper lobe granulomatous changes . ASSESSMENT AND PLAN: Middle-aged male with hypertension, diabetes mellitus, status post fall. CT co nsistent with possible dural thickening versus subdural hematoma, sinusitis. Left leg ulcer, now wit h hyponatremia. The patient is awaiting for subacute rehab placement. His hyponatremia probably sec ondary to decreased p.o. intake. The patient is started on IV fluids normal saline at 75 mL an hour. Will repeat labs in a.m. Nephrology consult with Dr. Cota. His Accu-Cheks are still high. His insulin regimen is being adjusted by endocrinology. His blood pressure is stable on current medicati on. Will continue with physical therapy and occupational therapy. [facility] MD cc: [phone] TT: 09/30/2016 22:04:10 Confirmation # [id number] Dictation # [id number] jn
[2016-09-30 22:48] LABS: RBC URINE 8 /hpf (0-3); URINE BACTERIA RARE (<OCC); URINE BILIRUBIN NEGATIVE (NEGATIVE); URINE BLOOD 1+ (NEGATIVE); URINE COLOR Yellow (YELLOW); URINE GLUCOSE (UA) 2+ mg/dL (Normal); URINE KETONE NEGATIVE (NEGATIVE); URINE LEUKOCYTE ESTERASE NEG Leu/uL (Negative); URINE PROTEIN 1+ mg/dL (NEGATIVE); WBC URINE 1 /hpf (0-5)
[2016-10-01] MEDS: Sodium Chloride 0.9% 1,000 ML IV SCH ×2 (02:27→04:00)
[2016-10-01] MEDS: (Novolog) Insulin Aspart, Recombinant 100 u/ml 10 ml vial SC SCH ×7 (08:20→21:37)
[2016-10-01] MEDS: Amoxicillin-Clav 875-125 mg Tab PO SCH ×2 (09:47→17:22)
--- NOTE | 2016-10-01 10:18 | CP.PCM.PN ---
Subjective - Date & Time of Evaluation Date of Evaluation: 10/01/16 Time of Evaluation: 10:00 - Subjective Subjective: Progress note dictated #[id number] Objective - Vital Signs/Intake and Output Vital Signs (last 24 hours): Temp Pulse Resp BP Pulse Ox 97.6 F 78 20 118/75 95 10/01/16 08:00 10/01/16 08:00 10/01/16 08:00 10/01/16 08:00 10/01/16 08:00 Intake and Output: 10/01/16 10/01/16 06:59 18:59 Intake Total 940 1000 Output Total 650 Balance 940 350 - Medications Medications: Current Medications Amlodipine Besylate (Norvasc) 10 mg PO DAILY [facility] Last Admin: 10/01/16 09:46 Dose: 10 mg Amoxicillin/Clavulanate Potassium (Augmentin 875 Mg-125 Mg Tab) 1 tab PO BID [facility] Last Admin: 10/01/16 09:47 Dose: 1 tab Glipizide (Glucotrol) 10 mg PO ACBD [facility] Last Admin: 10/01/16 08:26 Dose: 10 mg Sodium Chloride (Sodium Chloride 0.9%) 1,000 mls @ 75 mls/hr IV .[id number] [facility] Last Admin: 10/01/16 04:00 Dose: 75 mls/hr Insulin Aspart (Novolog) 0 unit SC ACHS [facility] PRN Reason: Protocol Last Admin: 10/01/16 08:20 Dose: Not Given Insulin Aspart (Novolog) 8 unit SC AC [facility] Last Admin: 10/01/16 08:26 Dose: 8 unit Insulin Glargine (Lantus) 20 unit SC HS [facility] Last Admin: 09/30/16 22:00 Dose: 20 units Labetalol HCl (Trandate) 100 mg PO Q12 [facility] Last Admin: 10/01/16 09:47 Dose: 100 mg Nicotine (Nicoderm Cq) 1 patch TD DAILY [facility] Last Admin: 10/01/16 09:49 Dose: 1 patch Sitagliptin Phosphate (Januvia) 100 mg PO ACB [facility] Last Admin: 10/01/16 08:26 Dose: 100 mg - Labs Labs: 09/29/16 17:00 09/30/16 11:19 PT 14.4 SECONDS (9.7-12.2) H 09/23/16 20:32 INR 1.3 09/23/16 20:32 APTT 30 SECONDS (21-34) 09/23/16 20:32
[2016-10-01 12:41] LABS: BASO % 0.4 % (0.0-2.0); EOS % 0.4 % (0.0-4.0); HEMATOCRIT 28.4 % (35.0-51.0); LYMPH # 1.1 K/uL (1.0-4.3); LYMPH % 8.9 % (20.0-40.0); MEAN CORPUSCULAR HEMOGLOBIN 31.2 pg (27.0-31.0); MEAN CORPUSCULAR HGB CONC 34.9 g/dL (33.0-37.0); MEAN PLATELET VOLUME 8.7 fL (7.2-11.7); MONO # 0.6 K/uL (0.0-0.8); MONO % 4.9 % (0.0-10.0); PLATELET COUNT 145 K/uL (130-400); RED CELL DISTRIBUTION WIDTH 13.3 % (11.5-14.5); WHITE BLOOD COUNT 11.9 K/uL (4.8-10.8)
[2016-10-01 12:46] LABS: CHLORIDE 90 mmol/L (98-107)
[2016-10-01 12:47] LABS: POTASSIUM 3.9 mmol/L (3.6-5.2); SODIUM 125 mmol/L (132-148)
[2016-10-01 12:49] LABS: ALB/GLOB RATIO 0.5 (1.0-2.1); ALKALINE PHOSPHATASE 168 U/L (38-126); AST/SGOT 51 U/L (17-59); BLOOD UREA NITROGEN 17 mg/dL (9-20); CARBON DIOXIDE 24 mmol/L (22-30); GFR AFRICAN-AMERICAN > 60; MEAN CELL VOLUME 89.3 fL (80.0-94.0); TOTAL PROTEIN 7.3 g/dL (6.3-8.3)
[2016-10-01 12:50] LABS: ALT/SGPT 33 U/L (21-72); CALCIUM 7.3 mg/dl (8.6-10.4); GLUCOSE,RANDOM 187 mg/dL (75-110); MAGNESIUM 1.7 mg/dL (1.6-2.3)
[2016-10-01 13:01] LABS: EOSINOPHIL 1 % (0-4); NEUTROPHIL 88 % (50-75); TOTAL CELLS COUNTED 100
--- NOTE | 2016-10-01 13:15 | PN ---
DATE: 10/01/2016 ROOM: 359 This is a 56-year-old male with recent uncontrolled type 2 insulin-requiring diabetes, now being foll owed closely for metabolic management. His glycemic levels are fluctuating, but much improved at this time and the latest chemistries showed a BUN of 17, sodium 124, potassium 4.1, chloride 89, CO2 25, glucose 228 and creatinine 1.0. So at this time, to allow for dose equilibration, we will continue the same basal and bolus insulin r egimen as his oral intake is quite variable as noted by the nursing staff. We will continue his Lant us given as 20 units subQ at bedtime daily as ordered. We will also continue the NovoLog given as 8 units subQ t.i.d. before meals as given. We will titrate incrementally as indicated to optimize meta bolic control. We will follow. Gayle Botello MD cc: [phone] TT: 10/01/2016 13:14:15 Confirmation # [id number] Dictation # [id number]
--- NOTE | 2016-10-01 14:49 | CP.PCM.CON ---
History of Present Illness - History of Present Illness History of Present Illness: Patient is a 56 M admitted to the ED for hyperglycemia. Patient is a homeless male with a previous hospital admission for diabetes, where he was given a prescription for Metformin. Heroine and barbiturates found in urine toxicology screen. He fell on his face in the emergency department. They sent him for a CT scan, which showed no bleed. He fell on his face a second time and was subsequently found to have a small subdural hematoma. Stitches were placed on his left forehead for the laceration. Patient was seen for possible admission to the ICU by Dr. Avalos and was found to be laying on an incline and eating while being fed by a nurse. Patient was able to hold a conversation and showed no signs of nausea, vomiting, chest pain , shortness of breath. ED attending noted patient unlikely a surgical candidate. PMH: DM 2 HTN ASTHMA MULTISUBSTANCE ABUSE MULTIPLE FALLS WITH CHRONIC SUBDURALS CONSULT DICTATED URINE PARAMETERS C/W SIADH- WILL TRY FLUID RESTRICTION FOR NOW Past Patient History - Infectious Disease Hx of Infectious Diseases: None - Past Medical History & Family History Past Medical History?: Yes - Past Social History Smoking Status: Light Smoker < 10 Cigarettes Daily - CARDIAC Hx Cardiac Disorders: Yes Hx Hypertension: Yes - PULMONARY Hx Respiratory Disorders: Yes Hx Asthma: Yes Hx Tuberculosis: Yes (Hx) - NEUROLOGICAL Hx Neurological Disorder: No - HEENT Hx HEENT Problems: No - RENAL Hx Chronic Kidney Disease: No - ENDOCRINE/METABOLIC Hx Diabetes Mellitus Type 2: Yes - HEMATOLOGICAL/ONCOLOGICAL Hx Blood Disorders: No - INTEGUMENTARY Hx Dermatological Problems: Yes Other/Comment: Chronic leg wound - MUSCULOSKELETAL/RHEUMATOLOGICAL Hx Musculoskeletal Disorders: Yes Hx Falls: Yes - GASTROINTESTINAL Hx Gastrointestinal Disorders: No - GENITOURINARY/GYNECOLOGICAL Hx Genitourinary Disorders: No - PSYCHIATRIC Hx Psychophysiologic Disorder: Yes Hx Substance Use: Yes - SURGICAL HISTORY Hx Surgeries: Yes Hx Musculoskeletal Surgery: Yes (Right leg surgery) - ANESTHESIA Hx Anesthesia: Yes Hx Anesthesia Reactions: No Hx Malignant Hyperthermia: No Has any member of the family had a problem w/ anesthesia?: No Meds Allergies/Adverse Reactions: Allergies Allergy/AdvReac Type Severity Reaction Status Date / Time shellfish derived Allergy Intermediate RASH Verified 09/23/16 09:43 - Medications Medications: Current Medications Amlodipine Besylate (Norvasc) 10 mg PO DAILY [facility] Last Admin: 10/01/16 09:46 Dose: 10 mg Amoxicillin/Clavulanate Potassium (Augmentin 875 Mg-125 Mg Tab) 1 tab PO BID [facility] Last Admin: 10/01/16 09:47 Dose: 1 tab Glipizide (Glucotrol) 10 mg PO ACBD [facility] Last Admin: 10/01/16 08:26 Dose: 10 mg Sodium Chloride (Sodium Chloride 0.9%) 1,000 mls @ 75 mls/hr IV .[id number] [facility] Last Admin: 10/01/16 04:00 Dose: 75 mls/hr Insulin Aspart (Novolog) 0 unit SC ACHS [facility] PRN Reason: Protocol Last Admin: 10/01/16 11:24 Dose: Not Given Insulin Aspart (Novolog) 8 unit SC AC [facility] Last Admin: 10/01/16 11:23 Dose: 8 unit Insulin Glargine (Lantus) 20 unit SC HS [facility] Last Admin: 09/30/16 22:00 Dose: 20 units Labetalol HCl (Trandate) 100 mg PO Q12 [facility] Last Admin: 10/01/16 09:47 Dose: 100 mg Nicotine (Nicoderm Cq) 1 patch TD DAILY [facility] Last Admin: 10/01/16 09:49 Dose: 1 patch Sitagliptin Phosphate (Januvia) 100 mg PO ACB [facility] Last Admin: 10/01/16 08:26 Dose: 100 mg Results - Vital Signs Recent Vital Signs: Last Vital Signs Temp 97.6 F 10/01/16 08:00 Pulse 78 10/01/16 08:00 Resp 20 10/01/16 08:00 BP 118/75 10/01/16 08:00 Pulse Ox 95 10/01/16 08:00 - Labs Result Diagrams: 10/01/16 12:22 10/01/16 12:22 Labs: Laboratory Results - last 24 hr 09/30/16 09/30/16 09/30/16 16:47 21:13 22:39 WBC RBC Hgb Hct MCV MCH MCHC RDW Plt Count MPV Neut % (Auto) Lymph % (Auto) [place] % (Auto) Eos % (Auto) Baso % (Auto) Neut # Lymph # [place] # Eos # Baso # Neutrophils % (Manual) Lymphocytes % (Manual) Monocytes % (Manual) Eosinophils % (Manual) Platelet Estimate Hypochromasia (manual) Poikilocytosis (manual Anisocytosis (manual) Sodium Potassium Chloride Carbon Dioxide Anion Gap BUN Creatinine Est GFR ( Amer) Est GFR (Non-Af Amer) POC Glucose (mg/dL) 240 H 188 H Random Glucose Calcium Phosphorus Magnesium Total Bilirubin AST ALT Alkaline Phosphatase Total Protein Albumin Globulin Albumin/Globulin Ratio Urine Color Yellow Urine Clarity Clear Urine pH 7.0 Ur Specific [place] 1.014 Urine Protein 1+ H Urine Glucose (UA) 2+ H Urine Ketones Negative Urine Blood 1+ H Urine Nitrate Negative Urine Bilirubin Negative Urine Urobilinogen 4.0 Ur Leukocyte Esterase Neg Urine WBC (Auto) 1 Urine RBC (Auto) 8 H Urine Bacteria Rare Urine Osmolality 447 Ur Random Sodium 97 10/01/16 10/01/16 10/01/16 02:23 07:27 11:15 WBC RBC Hgb Hct MCV MCH MCHC RDW Plt Count MPV Neut % (Auto) Lymph % (Auto) [place] % (Auto) Eos % (Auto) Baso % (Auto) Neut # Lymph # [place] # Eos # Baso # Neutrophils % (Manual) Lymphocytes % (Manual) Monocytes % (Manual) Eosinophils % (Manual) Platelet Estimate Hypochromasia (manual) Poikilocytosis (manual Anisocytosis (manual) Sodium Potassium Chloride Carbon Dioxide Anion Gap BUN Creatinine Est GFR ( Amer) Est GFR (Non-Af Amer) POC Glucose (mg/dL) 207 H 191 H 216 H Random Glucose Calcium Phosphorus Magnesium Total Bilirubin AST ALT Alkaline Phosphatase Total Protein Albumin Globulin Albumin/Globulin Ratio Urine Color Urine Clarity Urine pH Ur Specific [place] Urine Protein Urine Glucose (UA) Urine Ketones Urine Blood Urine Nitrate Urine Bilirubin Urine Urobilinogen Ur Leukocyte Esterase Urine WBC (Auto) Urine RBC (Auto) Urine Bacteria Urine Osmolality Ur Random Sodium 10/01/16 12:22 WBC 11.9 H RBC 3.18 L Hgb 9.9 L Hct 28.4 L MCV 89.3 D MCH 31.2 H MCHC 34.9 RDW 13.3 Plt Count 145 MPV 8.7 Neut % (Auto) 85.4 H Lymph % (Auto) 8.9 L Lyon % (Auto) 4.9 Eos % (Auto) 0.4 Baso % (Auto) 0.4 Neut # 10.2 H Lymph # 1.1 Lyon # 0.6 Eos # 0.0 Baso # 0.0 Neutrophils % (Manual) 88 H Lymphocytes % (Manual) 9 L Monocytes % (Manual) 2 Eosinophils % (Manual) 1 Platelet Estimate Normal Hypochromasia (manual) Slight Poikilocytosis (manual Slight Anisocytosis (manual) Slight Sodium 125 L Potassium 3.9 Chloride 90 L Carbon Dioxide 24 Anion Gap 15 BUN 17 Creatinine 0.9 Est GFR ( Amer) > 60 Est GFR (Non-Af Amer) > 60 POC Glucose (mg/dL) Random Glucose 187 H Calcium 7.3 L Phosphorus 3.0 Magnesium 1.7 Total Bilirubin 1.0 AST 51 ALT 33 Alkaline Phosphatase 168 H D Total Protein 7.3 Albumin 2.4 L Globulin 4.9 H Albumin/Globulin Ratio 0.5 L Urine Color Urine Clarity Urine pH Ur Specific [place] Urine Protein Urine Glucose (UA) Urine Ketones Urine Blood Urine Nitrate Urine Bilirubin Urine Urobilinogen Ur Leukocyte Esterase Urine WBC (Auto) Urine RBC (Auto) Urine Bacteria Urine Osmolality Ur Random Sodium
[2016-10-01] MEDS: (Lantus) Insulin Glargine, Recombinant SC SCH (21:37)
--- NOTE | 2016-10-01 21:51 | PN ---
DATE: 10/01/2016 The patient was seen and examined on rounds this morning. The patient is more alert and awake. Offe rs no new complaints. Denies any headache, dizziness. Denies any nausea, vomiting. Denies any diar jose or constipation, and denies any other neurologic symptoms. On examination, a middle-aged male lying in bed in no acute distress. Blood pressure 138/83, pulse 66, respiration 20, temperature 97.7 degrees Fahrenheit, O2 sats 92% on room air. HEENT: Pupils equal, round, reacting to light and accommodation. Extraocular muscles intact. Ecchy mosis of the upper lip is noted. No oral thrush, no pharyngeal congestion. NECK: Supple. No JVD. LUNGS: Bilateral vesicular breath sounds. No wheezing, no rhonchi. CARDIOVASCULAR SYSTEM: S1, S2 are present, regular. ABDOMEN: Soft, nontender. Bowel sounds present. No guarding, no rigidity, no rebound tenderness no pawel. CENTRAL NERVOUS SYSTEM: Alert, awake, oriented x 2. No focal deficits. EXTREMITIES: No edema left leg also noted. MEDICATIONS: Norvasc 10 mg daily, Augmentin 875 mg p.o. b.i.d., glipizide 10 mg p.o. b.i.d., Lantus 20 units subQ at bedtime, NovoLog 8 units subQ a.c, labetalol 100 mg p.o. q. 12 hours, Nicoderm patch , Januvia 100 mg p.o. LABORATORIES FROM TODAY: Sodium 125, potassium 3.9, chloride 90, bicarb 24, BUN 17, creatinine 0.9, glucose 187, calcium 7.3, phosphorus 3.0, magnesium 1.7. AST 51, ALT 33, alkaline phosphatase 163, t otal protein 10.3, albumin 2.4. TSH 3.67. Uric acid 4.4. Hemoglobin 9.9, WBC 11.9, hematocrit 28.4 , platelets 145. ASSESSMENT AND PLAN: Middle-aged male with hypertension, diabetes mellitus, status post fall, sinusi tis, left leg ulcer, hyponatremia. Blood pressure is controlled. Accu-Cheks are better than yesterd ay. Continue with current medication. Renal consult appreciated. The patient is on fluid restricti on. Will repeat labs in a.m. Will continue with physical therapy. Mel Solorio MD cc: [id number] TT: 10/01/2016 21:50:43 Confirmation # [id number] Dictation # [id number] jn
[2016-10-02 04:17] LABS: CHLORIDE URINE 93 mmol/L (32-290)
[2016-10-02] MEDS: (Novolog) Insulin Aspart, Recombinant 100 u/ml 10 ml vial SC SCH ×8 (07:30→21:34)
[2016-10-02] MEDS: Amoxicillin-Clav 875-125 mg Tab PO SCH ×2 (10:04→19:08)
--- NOTE | 2016-10-02 10:25 | CP.PCM.PN ---
Subjective - Date & Time of Evaluation Date of Evaluation: 10/02/16 Time of Evaluation: 10:20 - Subjective Subjective: Progress note dictated #[id number] Objective - Vital Signs/Intake and Output Vital Signs (last 24 hours): Temp Pulse Resp BP Pulse Ox 97.7 F 71 18 122/69 98 10/01/16 23:00 10/01/16 23:00 10/01/16 23:00 10/01/16 23:00 10/01/16 23:00 Intake and Output: 10/02/16 10/02/16 06:59 18:59 Intake Total 240 Output Total 500 Balance -260 - Medications Medications: Current Medications Amlodipine Besylate (Norvasc) 10 mg PO DAILY [facility] Last Admin: 10/02/16 10:04 Dose: 10 mg Amoxicillin/Clavulanate Potassium (Augmentin 875 Mg-125 Mg Tab) 1 tab PO BID [facility] Last Admin: 10/02/16 10:04 Dose: 1 tab Glipizide (Glucotrol) 10 mg PO ACBD [facility] Last Admin: 10/02/16 07:30 Dose: 10 mg Insulin Aspart (Novolog) 0 unit SC ACHS [facility] PRN Reason: Protocol Last Admin: 10/02/16 07:30 Dose: Not Given Insulin Aspart (Novolog) 8 unit SC AC [facility] Last Admin: 10/01/16 17:34 Dose: 8 unit Insulin Glargine (Lantus) 20 unit SC HS [facility] Last Admin: 10/01/16 21:37 Dose: 20 units Labetalol HCl (Trandate) 100 mg PO Q12 [facility] Last Admin: 10/02/16 10:04 Dose: 100 mg Nicotine (Nicoderm Cq) 1 patch TD DAILY [facility] Last Admin: 10/02/16 10:07 Dose: Not Given Sitagliptin Phosphate (Januvia) 100 mg PO ACB [facility] Last Admin: 10/02/16 07:30 Dose: 100 mg - Labs Labs: 10/01/16 12:22 10/01/16 12:22 PT 14.4 SECONDS (9.7-12.2) H 09/23/16 20:32 INR 1.3 09/23/16 20:32 APTT 30 SECONDS (21-34) 09/23/16 20:32
--- NOTE | 2016-10-02 10:45 | CP.PCM.PN ---
Subjective - Date & Time of Evaluation Date of Evaluation: 10/02/16 Time of Evaluation: 10:42 - Subjective Subjective: Patient is a 56 M admitted to the ED for hyperglycemia. Patient is a homeless male with a previous hospital admission for diabetes, where he was given a prescription for Metformin. Heroine and barbiturates found in urine toxicology screen. He fell on his face in the emergency department. They sent him for a CT scan, which showed no bleed. He fell on his face a second time and was subsequently found to have a small subdural hematoma. Stitches were placed on his left forehead for the laceration. Patient was seen for possible admission to the ICU by Dr. Avalos and was found to be laying on an incline and eating while being fed by a nurse. Patient was able to hold a conversation and showed no signs of nausea, vomiting, chest pain , shortness of breath. ED attending noted patient unlikely a surgical candidate. PMH: DM 2 HTN ASTHMA MULTISUBSTANCE ABUSE MULTIPLE FALLS WITH CHRONIC SUBDURALS 10/02 Notes reviewed Does not speak, does not awake to command Keeps covers over head, does notwant to talk Discussed with nurse - patient awake several minutes ago and appropriate to receive medications under nursing supervision No labs today Objective - Vital Signs/Intake and Output Vital Signs (last 24 hours): Temp Pulse Resp BP Pulse Ox 97.7 F 71 18 122/69 98 10/01/16 23:00 10/01/16 23:00 10/01/16 23:00 10/01/16 23:00 10/01/16 23:00 Intake and Output: 10/02/16 10/02/16 06:59 18:59 Intake Total 240 Output Total 500 Balance -260 - Medications Medications: Current Medications Amlodipine Besylate (Norvasc) 10 mg PO DAILY [facility] Last Admin: 10/02/16 10:04 Dose: 10 mg Amoxicillin/Clavulanate Potassium (Augmentin 875 Mg-125 Mg Tab) 1 tab PO BID [facility] Last Admin: 10/02/16 10:04 Dose: 1 tab Glipizide (Glucotrol) 10 mg PO ACBD [facility] Last Admin: 10/02/16 07:30 Dose: 10 mg Insulin Aspart (Novolog) 0 unit SC ACHS [facility] PRN Reason: Protocol Last Admin: 10/02/16 07:30 Dose: Not Given Insulin Aspart (Novolog) 8 unit SC AC [facility] Last Admin: 10/01/16 17:34 Dose: 8 unit Insulin Glargine (Lantus) 20 unit SC HS [facility] Last Admin: 10/01/16 21:37 Dose: 20 units Labetalol HCl (Trandate) 100 mg PO Q12 [facility] Last Admin: 10/02/16 10:04 Dose: 100 mg Nicotine (Nicoderm Cq) 1 patch TD DAILY [facility] Last Admin: 10/02/16 10:07 Dose: Not Given Sitagliptin Phosphate (Januvia) 100 mg PO ACB [facility] Last Admin: 10/02/16 07:30 Dose: 100 mg - Labs Labs: 10/01/16 12:22 10/01/16 12:22 PT 14.4 SECONDS (9.7-12.2) H 09/23/16 20:32 INR 1.3 09/23/16 20:32 APTT 30 SECONDS (21-34) 09/23/16 20:32 - Constitutional Appears: Unkempt, Chronically Ill - Neck Exam Neck Exam: absent: Lymphadenopathy, Thyromegaly - Respiratory Exam Respiratory Exam: Rhonchi, NORMAL BREATHING PATTERN. absent: Rales - Cardiovascular Exam Cardiovascular Exam: RRR, +S1, +S2 - GI/Abdominal Exam GI & Abdominal Exam: Soft, Normal Bowel Sounds - Extremities Exam Extremities Exam: absent: Pedal Edema, Tenderness - Neurological Exam Additional comments: can not evaluate due to patient uncooperative Assessment and Plan (1) Fall Status: Acute (2) Hyperglycemia Status: Acute (3) Subdural hematoma Status: Acute (4) Substance abuse Status: Acute (5) Hyponatremia Status: Acute - Assessment and Plan (Free Text) Assessment: Hyponatremia on fluid restriction Await chemistry today to evaluate progress of siadh Repeat urine and serum chemistry when patient allows
[2016-10-02 11:22] LABS: CHLORIDE 91 mmol/L (98-107); POTASSIUM 4.4 mmol/L (3.6-5.2); SODIUM 126 mmol/L (132-148)
[2016-10-02 11:25] LABS: BLOOD UREA NITROGEN 17 mg/dL (9-20); CARBON DIOXIDE 24 mmol/L (22-30); GFR AFRICAN-AMERICAN > 60; GLUCOSE,RANDOM 153 mg/dL (75-110)
[2016-10-02 11:26] LABS: CALCIUM 7.7 mg/dl (8.6-10.4); URIC ACID 3.6 mg/dL (3.5-8.5)
[2016-10-02 14:53] VITALS: RESP 20
--- NOTE | 2016-10-02 15:43 | PN ---
DATE: 10/02/2016 ROOM: 359 This is a 56-year-old male with recent uncontrolled type 2 insulin-requiring diabetes with extremes o f glycemic fluctuations related to the variability of his oral intake and is now being followed close ly for metabolic management. His glucose values are fluctuating but much improved at this time, and the latest glucose levels have ranged from 104-169 mg/dL. His latest chemistries include a BUN of 17, sodium 126, potassium 4.4, c hloride 91, CO2 24, glucose 153 and creatinine 0.9. His bedtime glucose ranged from 119-214 mg/dL. So at this time, will continue the same basal and bolus insulin regimen to allow for dose equilibrati on and keep him on the NovoLog given as 8 units subQ t.i.d. before meals as ordered. Will continue t he Lantus given as basal insulin at 20 units subQ at bedtime daily as given. Will continue also the dual oral hypoglycemic drug therapy with Januvia given as 100 mg daily and glipizide given as 10 mg b .i.d. before meals as ordered. Will titrate incrementally as indicated to optimize metabolic control . Will continue also the low-dose correction scale using NovoLog insulin as ordered. Will follow an d advise accordingly. Gayle Botello MD cc: [id number] TT: 10/02/2016 15:43:16 Confirmation # [id number] Dictation # [id number] yu
--- NOTE | 2016-10-02 17:49 | PN ---
DATE: 10/02/2016 The patient was seen and examined on rounds this morning. The patient is complaining of not feeling well, claiming that he did not move his bowels this morning complaining of headache. REVIEW OF SYSTEMS: All other systems reviewed and negative. PHYSICAL EXAMINATION: GENERAL: Middle-aged male, lying in bed in no acute distress. VITAL SIGNS: Blood pressure 136/82, pulse 78, respirations 20, temperature 98.2 degrees Fahrenheit, O2 saturation 95% on room air. HEENT: Pupils reacting to light and accommodation. Extraocular muscles intact. No icterus, no pall or. LUNGS: Bilateral vesicular breath sounds. No wheezing, no rhonchi. CARDIOVASCULAR: S1, S2 present, irregular. ABDOMEN: Soft, nontender. Bowel sounds present. No guarding, no rigidity, no rebound tenderness no pawel. CENTRAL NERVOUS SYSTEM: Alert, awake, oriented x 3. No focal deficits noted. EXTREMITIES: Left leg ulcers. MEDICATIONS: Include Norvasc 10 mg daily, Augmentin 1 tab p.o. b.i.d., glipizide 10 mg p.o. b.i.d., NovoLog 8 units subQ a.c., Lantus 20 units subQ daily, labetalol 100 mg p.o. q. 12 hours, Nicoderm p atch, Januvia 100 mg p.o. daily. LABORATORY DATA: From this morning, sodium 126, potassium 4.4, chloride 91, bicarbonate 24, BUN 17, creatinine 0.9, glucose 169. Uric acid 3.6. Total calcium 10.7. Urine osmolality 587. Urine sodiu m 98. Serum osmolality 268. ASSESSMENT AND PLAN: Middle-aged male with hypertension, diabetes mellitus, status post fall with le ft leg ulcer, substance abuse, now with hyponatremia, questionable etiology, rule out secondary to sy ndrome of inappropriate antidiuretic hormone secretion, rule out other causes. On fluid restriction. Blood pressure is controlled. Accu-Cheks are fair. Repeat Chem-7 in a.m. Sodium today is slightly better, improved to 126 from 124. Continue with other current therapy. We will follow with you. Mel Solorio MD cc: [phone] TT: 10/02/2016 17:48:55 Confirmation # [id number] Dictation # [id number]
[2016-10-02] MEDS ORDERED: Aluminum Hydroxide/Magnesium Hydroxide Susp (30 mL) PO STA (18:38)
[2016-10-02] MEDS: (Lantus) Insulin Glargine, Recombinant SC SCH (21:34)
[2016-10-03] MEDS: (Novolog) Insulin Aspart, Recombinant 100 u/ml 10 ml vial SC SCH ×7 (08:14→22:08)
[2016-10-03 08:49] LABS: CHLORIDE 92 mmol/L (98-107)
[2016-10-03 08:50] LABS: POTASSIUM 5.4 mmol/L (3.6-5.2); SODIUM 123 mmol/L (132-148)
[2016-10-03 08:52] LABS: ALB/GLOB RATIO 0.4 (1.0-2.1); ALKALINE PHOSPHATASE 216 U/L (38-126); ALT/SGPT 38 U/L (21-72); AST/SGOT 80 U/L (17-59); BILIRUBIN,TOTAL 1.6 mg/dL (0.2-1.3); BLOOD UREA NITROGEN 17 mg/dL (9-20); CALCIUM 7.4 mg/dl (8.6-10.4); CARBON DIOXIDE 21 mmol/L (22-30); GFR AFRICAN-AMERICAN > 60; GLUCOSE,RANDOM 174 mg/dL (75-110); TOTAL PROTEIN 8.4 g/dL (6.3-8.3)
[2016-10-03] MEDS: Amoxicillin-Clav 875-125 mg Tab PO SCH ×2 (11:01→18:05)
[2016-10-03] MEDS ORDERED: Sod Polystyrene Sulf 15 gm/60 ml Oral Susp PO ONE (11:31)
--- NOTE | 2016-10-03 11:31 | CP.PCM.PN ---
Subjective - Date & Time of Evaluation Date of Evaluation: 10/03/16 Time of Evaluation: 11:10 - Subjective Subjective: Progress note dictated #[id number] Objective - Vital Signs/Intake and Output Vital Signs (last 24 hours): Temp Pulse Resp BP Pulse Ox 98.1 F 71 20 154/92 H 94 L 10/03/16 08:10 10/03/16 08:10 10/03/16 08:10 10/03/16 08:10 10/03/16 08:10 Intake and Output: 10/03/16 10/03/16 06:59 18:59 Intake Total 120 Balance 120 - Medications Medications: Current Medications Amlodipine Besylate (Norvasc) 10 mg PO DAILY [facility] Last Admin: 10/03/16 11:00 Dose: 10 mg Amoxicillin/Clavulanate Potassium (Augmentin 875 Mg-125 Mg Tab) 1 tab PO BID [facility] Last Admin: 10/03/16 11:01 Dose: 1 tab Glipizide (Glucotrol) 10 mg PO ACBD [facility] Last Admin: 10/03/16 08:13 Dose: 10 mg Insulin Aspart (Novolog) 0 unit SC ACHS [facility] PRN Reason: Protocol Last Admin: 10/03/16 08:14 Dose: Not Given Insulin Aspart (Novolog) 8 unit SC AC [facility] Last Admin: 10/03/16 08:14 Dose: 8 unit Insulin Glargine (Lantus) 20 unit SC HS [facility] Last Admin: 10/02/16 21:34 Dose: 20 units Labetalol HCl (Trandate) 100 mg PO Q12 [facility] Last Admin: 10/03/16 11:01 Dose: 100 mg Nicotine (Nicoderm Cq) 1 patch TD DAILY [facility] Last Admin: 10/03/16 11:01 Dose: 1 patch Sitagliptin Phosphate (Januvia) 100 mg PO ACB [facility] Last Admin: 10/03/16 08:13 Dose: 100 mg - Labs Labs: 10/01/16 12:22 10/03/16 08:32 PT 14.4 SECONDS (9.7-12.2) H 09/23/16 20:32 INR 1.3 09/23/16 20:32 APTT 30 SECONDS (21-34) 09/23/16 20:32
[2016-10-03] MEDS ORDERED: Tolvaptan 15 MG TAB PO ONE (12:03)
--- NOTE | 2016-10-03 12:13 | PN ---
DATE: 10/03/2016 The patient is seen and examined at bedside. He is complaining of leg pain. Denies any headache, di zziness. Denies any chest pain, shortness of breath, or wheezing. Denies any nausea, vomiting, abdo alla pain, diarrhea, or constipation. PHYSICAL EXAMINATION: GENERAL: Middle-aged male lying in bed in no acute distress. VITAL SIGNS: Blood pressure 154/92, pulse 71, respirations 20, temperature 98.1 degrees Fahrenheit. O2 sat is 95% on room air. HEENT: Pupils are equal and reacting to light and accommodation. Ecchymosis of the eyelids improvin g. NECK: Supple. No JVD. LUNGS: Bilateral vesicular breath sounds. No wheezing, no rhonchi. CARDIOVASCULAR: S1, S2 present, regular. ABDOMEN: Soft, nontender. Bowel sounds present. No guarding, no rigidity, no rebound tenderness no pawel. CENTRAL NERVOUS SYSTEM: Alert, awake, oriented x 2. No focal deficits noted. EXTREMITIES: Left leg ulcer improving with the dressing. MEDICATIONS: Include Norvasc 10 mg daily, Augmentin 1 tab p.o. b.i.d., Glucotrol 10 mg p.o. b.i.d., NovoLog 8 units subQ a.c., Lantus 20 units subQ at bedtime, labetalol l00 mg p.o. q. 12 hours, NicoD erm patch, Januvia 100 mg p.o. LABORATORY DATA: From this morning, sodium 133, potassium 5.4, chloride 92, bicarb 21. BUN 17, crea tinine 0.8. Glucose 124. Calcium 7.4. Total bilirubin 1.6. AST 80, ALT 38, alkaline phosphatase 2 16, protein 8.4, albumin 2.6. ASSESSMENT AND PLAN: Middle-aged male with hypertension, diabetes mellitus, substance abuse, status post fall with CT consistent with possible dural thickening versus small subdural hematoma. No inter vention recommended by neurosurgery. Left leg ulcer, hyponatremia, persistent on fluid restriction. It is worse today. We will follow up with renal. Blood pressure is slightly high. He did not get his morning medication. Accu-Cheks are slightly better on insulin regimen. We will continue with [facility] leg ulcer dressing. Follow up with renal regarding hyponatremia. We will repeat labs in a.m. Mel Solorio MD cc: [phone] TT: 10/03/2016 12:13:22 [facility] # [id number] Dictation # [id number] jn
--- NOTE | 2016-10-03 14:06 | PN ---
DATE: 10/03/2016 ROOM: 359. SUBJECTIVE: This is a 56-year-old male with recent uncontrolled type 2 insulin-requiring diabetes, n ow being followed closely for metabolic management. His oral intake is quite variable at this time a nd has intermittent bouts of glycemic fluctuation as noted thereof. His latest glucose values today have ranged from 208-225 mg/dL. It was 291 early this morning, as noted. It was 224 also at bedtime last night. The latest chemistries showed a BUN of 17, sodium 123, potassium 5.4, chloride 92, CO2 of 21, glucose 174, and creatinine 0.8. We will obtain a serum cortisol level at this time to exclud e any underlying hypoadrenalism as noted. He is currently on Samsca or tolvaptan 15 mg once daily fo r management of persistent euvolemic hyponatremia. We will obtain serial chemistries and supplement accordingly as needed. We will follow with you. Gayle Botello MD cc: [id number] TT: 10/03/2016 14:05:52 Confirmation # [id number] Dictation # [id number] [id number]
[2016-10-03] MEDS: (Lantus) Insulin Glargine, Recombinant SC SCH (22:03)
--- NOTE | 2016-10-04 07:25 | CON ---
DATE: 10/01/2016 The patient is a 56-year-old man who came to the Emergency Department for high blood sugars. He is a homeless man, and had been in and out of the hospitals as well, and has suffered multiple falls. He apparently has had diagnosis of subdural hematomas from his falls. He has had prior admissions for diabetes mellitus, and recently put on metformin. He does take heroin and barbiturates, as this was found on urine toxicology screens. A renal consult requested for low sodium levels. Sodium wa s initially 131, and now it has dropped to 125. CAT scan of the head did show a small subdural hemat marzena as a residual finding. PAST MEDICAL HISTORY: Diabetes mellitus type 2, hypertension, asthma, multi-substance abuse, multipl e falls with chronic subdurals. He denies surgical history. SOCIAL HISTORY: Moderate smoking use, which is active. Denies alcohol abuse, and has history of mul ti-substance abuse including heroin use. FAMILY HISTORY: Unknown. REVIEW OF SYSTEMS: Dyspnea on exertion for approximately several blocks. He has had unsteady on gai t. He has multiple ecchymotic areas/bruises which are new from falls. No nausea, vomiting, no diarr hea, no chest pain, no chills, no dysuria or gross hematuria. OUTPATIENT MEDICATIONS: Included amlodipine, glipizide, insulin, NovoLog insulin, Lantus insulin, la betalol b.i.d., nicotine patch, and Januvia. It is unclear whether he was taking these medications. PHYSICAL EXAMINATION: He is a well-developed man who is awake, somewhat lethargic. Blood pressure 118/75, temperature 97.6, pulse ox 95% on room air, pulse is 78. Anicteric. Mouth was clear. He had ecchymotic areas on face. NECK: He had no JVD. LUNG SARKAR: Clear. HEART: Regular rhythm, no murmur. ABDOMEN: Soft, benign, no mass, no organomegaly. No peripheral edema. NEUROLOGIC: No focal deficits. Blood work has urine with 1+ protein, urine osmolarity of 447, urine sodium of 97. Initial sodium wa s 135. It had decreased to 124, now is 125. BUN 17, creatinine 0.9, uric acid level of 4.4. IMPRESSION: Hyponatremia, syndrome of inappropriate antidiuretic hormone (SIADH), as the urine tiago eters consistent with this, probably related to a subdural hematoma. Multi-substance abuse, recent f alls, diabetes mellitus type 2, hypertension. RECOMMENDATION: Would repeat the testing for SIADH, including urine osmolarity, urine sodium, serum uric acid, and follow up the sodium levels. Would try fluid restriction. If that is unsuccessful, c ould try Samsca or demeclocycline. Will follow up. Juan Cota MD cc: [phone] TT: 10/01/2016 16:45:10 Confirmation # [id number] Dictation # [id number] jn
[2016-10-04] MEDS: (Novolog) Insulin Aspart, Recombinant 100 u/ml 10 ml vial SC SCH ×8 (08:32→21:14)
[2016-10-04 08:49] LABS: CHLORIDE 94 mmol/L (98-107); POTASSIUM 4.6 mmol/L (3.6-5.2); SODIUM 128 mmol/L (132-148)
[2016-10-04 08:51] LABS: AST/SGOT 57 U/L (17-59); CARBON DIOXIDE 24 mmol/L (22-30); GFR AFRICAN-AMERICAN > 60
[2016-10-04 08:52] LABS: ALB/GLOB RATIO 0.5 (1.0-2.1); ALKALINE PHOSPHATASE 216 U/L (38-126); ALT/SGPT 26 U/L (21-72); BLOOD UREA NITROGEN 18 mg/dL (9-20); CALCIUM 7.4 mg/dl (8.6-10.4); GLUCOSE,RANDOM 251 mg/dL (75-110); TOTAL PROTEIN 7.7 g/dL (6.3-8.3)
[2016-10-04] MEDS: Amoxicillin-Clav 875-125 mg Tab PO SCH ×2 (09:27→18:09)
--- NOTE | 2016-10-04 11:53 | CP.PCM.PN ---
Subjective - Date & Time of Evaluation Date of Evaluation: 10/04/16 Time of Evaluation: 11:51 - Subjective Subjective: s/p tovalptan dose Na better at 128 Same lethargic state Offers no other complaints Objective - Vital Signs/Intake and Output Vital Signs (last 24 hours): Temp Pulse Resp BP Pulse Ox 98.0 F 78 20 144/84 98 10/04/16 08:00 10/04/16 08:00 10/04/16 08:00 10/04/16 08:00 10/04/16 08:00 Intake and Output: 10/04/16 10/04/16 06:59 18:59 Intake Total 640 Balance 640 - Medications Medications: Current Medications Amlodipine Besylate (Norvasc) 10 mg PO DAILY [facility] Last Admin: 10/04/16 09:26 Dose: 10 mg Amoxicillin/Clavulanate Potassium (Augmentin 875 Mg-125 Mg Tab) 1 tab PO BID [facility] Stop: 10/07/16 23:59 Last Admin: 10/04/16 09:27 Dose: 1 tab Glipizide (Glucotrol) 10 mg PO ACBD [facility] Last Admin: 10/04/16 08:31 Dose: 10 mg Insulin Aspart (Novolog) 0 unit SC ACHS [facility] PRN Reason: Protocol Last Admin: 10/04/16 08:32 Dose: Not Given Insulin Aspart (Novolog) 10 unit SC AC [facility] Last Admin: 10/04/16 08:35 Dose: 10 unit Insulin Glargine (Lantus) 22 unit SC HS [facility] Last Admin: 10/03/16 22:03 Dose: 22 units Labetalol HCl (Trandate) 100 mg PO Q12 [facility] Last Admin: 10/04/16 09:27 Dose: 100 mg Nicotine (Nicoderm Cq) 1 patch TD DAILY [facility] Last Admin: 10/04/16 09:26 Dose: 1 patch Sitagliptin Phosphate (Januvia) 100 mg PO ACB [facility] Last Admin: 10/04/16 08:31 Dose: 100 mg - Labs Labs: 10/01/16 12:22 10/04/16 08:30 PT 14.4 SECONDS (9.7-12.2) H 09/23/16 20:32 INR 1.3 09/23/16 20:32 APTT 30 SECONDS (21-34) 09/23/16 20:32 - Constitutional Appears: No Acute Distress, Chronically Ill - Head Exam Head Exam: NORMAL INSPECTION, NORMOCEPHALIC - Eye Exam Eye Exam: EOMI, Normal appearance - Neck Exam Neck Exam: Normal Inspection. absent: Tenderness - Respiratory Exam Respiratory Exam: Clear to Ausculation Bilateral, NORMAL BREATHING PATTERN - Cardiovascular Exam Cardiovascular Exam: REGULAR RHYTHM, +S1 - GI/Abdominal Exam GI & Abdominal Exam: Soft. absent: Tenderness - Neurological Exam Neurological Exam: Awake, CN II-XII Intact - Skin Skin Exam: Dry, Warm Assessment and Plan (1) Subdural hematoma Status: Acute (2) Substance abuse Status: Acute (3) SIADH (syndrome of inappropriate ADH production) Status: Acute - Assessment and Plan (Free Text) Plan: Fluid restriction 1000ml daily Serial na levels
--- NOTE | 2016-10-04 13:39 | CP.PCM.PN ---
Subjective - Date & Time of Evaluation Date of Evaluation: 10/04/16 Time of Evaluation: 13:10 - Subjective Subjective: Progress note dictated #[id number] Objective - Vital Signs/Intake and Output Vital Signs (last 24 hours): Temp Pulse Resp BP Pulse Ox 98.0 F 78 20 144/84 98 10/04/16 08:00 10/04/16 08:00 10/04/16 08:00 10/04/16 08:00 10/04/16 08:00 Intake and Output: 10/04/16 10/04/16 06:59 18:59 Intake Total 640 Balance 640 - Medications Medications: Current Medications Amlodipine Besylate (Norvasc) 10 mg PO DAILY [facility] Last Admin: 10/04/16 09:26 Dose: 10 mg Amoxicillin/Clavulanate Potassium (Augmentin 875 Mg-125 Mg Tab) 1 tab PO BID [facility] Stop: 10/07/16 23:59 Last Admin: 10/04/16 09:27 Dose: 1 tab Glipizide (Glucotrol) 10 mg PO ACBD [facility] Last Admin: 10/04/16 08:31 Dose: 10 mg Insulin Aspart (Novolog) 0 unit SC ACHS [facility] PRN Reason: Protocol Last Admin: 10/04/16 12:10 Dose: Not Given Insulin Aspart (Novolog) 10 unit SC AC [facility] Last Admin: 10/04/16 12:11 Dose: 10 unit Insulin Glargine (Lantus) 22 unit SC HS [facility] Last Admin: 10/03/16 22:03 Dose: 22 units Labetalol HCl (Trandate) 100 mg PO Q12 [facility] Last Admin: 10/04/16 09:27 Dose: 100 mg Nicotine (Nicoderm Cq) 1 patch TD DAILY [facility] Last Admin: 10/04/16 09:26 Dose: 1 patch Sitagliptin Phosphate (Januvia) 100 mg PO ACB [facility] Last Admin: 10/04/16 08:31 Dose: 100 mg - Labs Labs: 10/01/16 12:22 10/04/16 08:30 PT 14.4 SECONDS (9.7-12.2) H 09/23/16 20:32 INR 1.3 09/23/16 20:32 APTT 30 SECONDS (21-34) 09/23/16 20:32
--- NOTE | 2016-10-04 20:26 | PN ---
DATE: 10/04/2016 The patient was seen and examined at bedside. The patient offers no new complaints. PHYSICAL EXAMINATION: GENERAL: Lying in bed in no acute distress. VITAL SIGNS: Blood pressure 129/80, pulse 80, respirations 20, temperature 97.9 degrees Fahrenheit, O2 sat is 96% on room air. HEENT: Pupils equal, round, reacting to light and accommodation. Ecchymosis is improving. No oral thrush. No pharyngeal congestion. NECK: Supple. No JVD. LUNGS: Bilateral vesicular breath sounds. No wheezing, no rhonchi. CARDIOVASCULAR: S1, S2 present. Regular. ABDOMEN: Soft, nontender. Bowel sounds present. No guarding, no rigidity. No rebound tenderness n oted. CENTRAL NERVOUS SYSTEM: Awake, oriented x 2. No focal deficits noted. EXTREMITIES: Left leg ulcer with dressing. MEDICATIONS: Include Norvasc 10 mg daily, Augmentin 1 tab p.o. b.i.d., Glucotrol 10 mg p.o. b.i.d., NovoLog 10 units subcutaneously a.c., Lantus 22 units subQ at bedtime, labetalol 100 mg p.o. q. 12 h ours, Nicotine patch, Januvia 100 mg p.o. daily. LABORATORY DATA: His sodium from this morning 128, repeat sodium 132, potassium 4.6, chloride 94, bi carbonate 24, BUN 18, creatinine 1.0, glucose 249, alkaline phosphatase 216, total protein 7.7, album in 2.5, globulin 5.2. ASSESSMENT AND PLAN: Middle-aged male with hypertension, diabetes mellitus, status post fall, left l eg ulcer, abnormal CT with possible dural thickening, hyponatremia status post 1 dose of tolvaptan, w frida improved sodium to 132. We will follow up with renal regarding further treatment plan for hypona tremia. He has been on fluid restriction, 1000 mL daily. We will follow up with secondary social studies teacher. Sadie raygoza will plan discharging the patient to subacute rehab when bed available and when cleared by renal. His Accu-Cheks are fair, blood pressure is controlled. We will continue with current medication. Mel Solorio MD cc: [id number] TT: 10/04/2016 20:25:35 Confirmation # [id number] Dictation # [id number] ln
[2016-10-04] MEDS: (Lantus) Insulin Glargine, Recombinant SC SCH (21:05)
--- NOTE | 2016-10-04 21:59 | PN ---
DATE: 10/04/2016 ROOM: 359. SUBJECTIVE: This is a 56-year-old male with recent uncontrolled type 2 insulin-requiring diabetes, n ow being followed closely for metabolic management. His glycemic levels are fluctuating, as noted, a nd the latest glucose levels have ranged from 249-260 mg/dL. It was still 319 at bedtime last night, as noted. The latest chemistry showed a BUN of 18, sodium 128, potassium 4.6, chloride 94, CO2 24, glucose 251, and creatinine 1.0. So, at this time, we will modify his basal insulin and increase the Lantus to 26 units subQ at bedtim e daily to start tonight. We will also continue the NovoLog given as a low dose correction scale as ordered in detail. We will increase the meal time NovoLog to 12 units subQ t.i.d. before meals, as alan verduzco. We will also continue the dual oral hypoglycemic drug therapy with Januvia given as 100 mg sandeep ly and Glucotrol given as 10 mg b.i.d. before meals. We will titrate incrementally as indicated to o ptimize metabolic control. We will follow. Gayle Botello MD cc: [id number] TT: 10/04/2016 21:58:25 Confirmation # [id number] Dictation # [id number] ln
[2016-10-04] MEDS ORDERED: (Lantus) Insulin Glargine, Recombinant SC SCH (22:00)
[2016-10-05 08:28] LABS: CHLORIDE 95 mmol/L (98-107); POTASSIUM 4.7 mmol/L (3.6-5.2); SODIUM 130 mmol/L (132-148)
[2016-10-05] MEDS: (Novolog) Insulin Aspart, Recombinant 100 u/ml 10 ml vial SC SCH ×7 (08:30→21:45)
[2016-10-05 08:31] LABS: BLOOD UREA NITROGEN 22 mg/dL (9-20); CALCIUM 7.4 mg/dl (8.6-10.4); CARBON DIOXIDE 24 mmol/L (22-30); GFR AFRICAN-AMERICAN > 60; GLUCOSE,RANDOM 240 mg/dL (75-110)
[2016-10-05] MEDS: Amoxicillin-Clav 875-125 mg Tab PO SCH ×2 (10:05→18:00)
--- NOTE | 2016-10-05 10:34 | CP.PCM.PN ---
Subjective - Date & Time of Evaluation Date of Evaluation: 10/05/16 Time of Evaluation: 10:30 - Subjective Subjective: Progress note dictated #[id number] Objective - Vital Signs/Intake and Output Vital Signs (last 24 hours): Temp Pulse Resp BP Pulse Ox 97.7 F 71 20 129/75 97 10/05/16 08:00 10/05/16 08:00 10/05/16 08:00 10/05/16 08:00 10/05/16 08:00 Intake and Output: 10/05/16 10/05/16 06:59 18:59 Intake Total 350 Output Total 550 Balance -200 - Medications Medications: Current Medications Amlodipine Besylate (Norvasc) 10 mg PO DAILY [facility] Last Admin: 10/05/16 10:05 Dose: 10 mg Amoxicillin/Clavulanate Potassium (Augmentin 875 Mg-125 Mg Tab) 1 tab PO BID [facility] Stop: 10/07/16 23:59 Last Admin: 10/05/16 10:05 Dose: 1 tab Glipizide (Glucotrol) 10 mg PO ACBD [facility] Last Admin: 10/05/16 08:30 Dose: 10 mg Insulin Aspart (Novolog) 0 unit SC ACHS [facility] PRN Reason: Protocol Last Admin: 10/05/16 10:06 Dose: Not Given Insulin Aspart (Novolog) 12 unit SC AC [facility] Last Admin: 10/05/16 08:30 Dose: 12 unit Insulin Glargine (Lantus) 24 unit SC HS [facility] Labetalol HCl (Trandate) 100 mg PO Q12 [facility] Last Admin: 10/05/16 10:07 Dose: 100 mg Nicotine (Nicoderm Cq) 1 patch TD DAILY [facility] Last Admin: 10/05/16 10:05 Dose: 1 patch Sitagliptin Phosphate (Januvia) 100 mg PO ACB [facility] Last Admin: 10/05/16 08:30 Dose: 100 mg - Labs Labs: 10/01/16 12:22 10/05/16 07:58 PT 14.4 SECONDS (9.7-12.2) H 09/23/16 20:32 INR 1.3 09/23/16 20:32 APTT 30 SECONDS (21-34) 09/23/16 20:32
--- NOTE | 2016-10-05 11:40 | CP.PCM.PN ---
Subjective - Date & Time of Evaluation Date of Evaluation: 10/05/16 Time of Evaluation: 11:39 - Subjective Subjective: appears comfortable poor appetite per sitter, drinking a lot of fluids no labs today Objective - Vital Signs/Intake and Output Vital Signs (last 24 hours): Temp Pulse Resp BP Pulse Ox 97.7 F 71 20 129/75 97 10/05/16 08:00 10/05/16 08:00 10/05/16 08:00 10/05/16 08:00 10/05/16 08:00 Intake and Output: 10/05/16 10/05/16 06:59 18:59 Intake Total 350 Output Total 550 Balance -200 - Medications Medications: Current Medications Amlodipine Besylate (Norvasc) 10 mg PO DAILY [facility] Last Admin: 10/05/16 10:05 Dose: 10 mg Amoxicillin/Clavulanate Potassium (Augmentin 875 Mg-125 Mg Tab) 1 tab PO BID [facility] Stop: 10/07/16 23:59 Last Admin: 10/05/16 10:05 Dose: 1 tab Glipizide (Glucotrol) 10 mg PO ACBD [facility] Last Admin: 10/05/16 08:30 Dose: 10 mg Insulin Aspart (Novolog) 0 unit SC ACHS [facility] PRN Reason: Protocol Last Admin: 10/05/16 10:06 Dose: Not Given Insulin Aspart (Novolog) 12 unit SC AC [facility] Last Admin: 10/05/16 08:30 Dose: 12 unit Insulin Glargine (Lantus) 24 unit SC HS [facility] Labetalol HCl (Trandate) 100 mg PO Q12 [facility] Last Admin: 10/05/16 10:07 Dose: 100 mg Nicotine (Nicoderm Cq) 1 patch TD DAILY [facility] Last Admin: 10/05/16 10:05 Dose: 1 patch Sitagliptin Phosphate (Januvia) 100 mg PO ACB [facility] Last Admin: 10/05/16 08:30 Dose: 100 mg - Labs Labs: 10/01/16 12:22 10/05/16 07:58 PT 14.4 SECONDS (9.7-12.2) H 09/23/16 20:32 INR 1.3 09/23/16 20:32 APTT 30 SECONDS (21-34) 09/23/16 20:32 - Constitutional Appears: Non-toxic, No Acute Distress, Cachectic, Chronically Ill - Head Exam Head Exam: NORMAL INSPECTION - Eye Exam Eye Exam: Normal appearance - ENT Exam ENT Exam: Mucous Membranes Moist - Neck Exam Neck Exam: Normal Inspection - Respiratory Exam Respiratory Exam: Clear to Ausculation Bilateral - Cardiovascular Exam Cardiovascular Exam: REGULAR RHYTHM, RRR - GI/Abdominal Exam GI & Abdominal Exam: Soft, Normal Bowel Sounds - Extremities Exam Extremities Exam: Normal Inspection Assessment and Plan (1) Fall Status: Acute (2) Hyperglycemia Status: Acute (3) Hyponatremia Status: Acute (4) SIADH (syndrome of inappropriate ADH production) Status: Acute (5) Substance abuse Status: Acute - Assessment and Plan (Free Text) Assessment: repeat chem daily maintain fluid restriction
--- NOTE | 2016-10-05 19:43 | PN ---
DATE: 10/05/2016 The patient was seen and examined at bedside. The patient denies any complaints of headache, dizzine ss. Denies any chest pain, shortness of breath or wheezing. Denies any nausea, vomiting, abdominal pain, diarrhea, or constipation. Denies any other neurologic symptoms. On examination, middle-aged male lying in bed in no acute distress. Blood pressure 125/74, pulse 77, respirations 20, temperature 97.9 degrees Fahrenheit, O2 sat is 100% on room air. HEENT: Pupils equal, reacting to light and accommodation. Extraocular muscles intact. No icterus, no pallor. NECK: Supple. No JVD. LUNGS: Bilateral vesicular breath sounds. No wheezing, no rhonchi. CARDIOVASCULAR SYSTEM: S1, S2 present, regular. ABDOMEN: Soft, nontender. Bowel sounds present. No guarding, no rigidity, no rebound tenderness no pawel. CENTRAL NERVOUS SYSTEM: Alert, awake, oriented x 3. No focal deficits noted. EXTREMITIES: Left leg ulcer with dressing. No edema. MEDICATIONS: Include Norvasc 10 mg daily, Augmentin 875 mg p.o. b.i.d., Glucotrol XL 10 mg b.i.d., N ovoLog 14 units subQ, Lantus 30 units subQ at bedtime, labetalol 100 mg p.o. q. 12 hours, Nicoderm pa tc, Januvia 100 mg p.o. daily. LABORATORIES FROM TODAY: The sodium 130, potassium 4.7, chloride 95, bicarb 24, BUN 22, creatinine 1 .0, glucose 247, calcium 7.4. ASSESSMENT AND PLAN: Middle-aged male with hypertension, diabetes mellitus, left leg ulcer status po st fall, debility, hyponatremia status post 1 dose of tolvaptan, on fluid restriction. Sodium is at 130 today. Discussed with medical social consultant and case management. Awaiting for authorization for subacute rehab pl acement versus long-term care. Will continue with current treatment. Follow up with renal. Mel Solorio MD cc: [phone] TT: 10/05/2016 19:42:58 Confirmation # [id number] Dictation # [id number] jn
--- NOTE | 2016-10-05 20:01 | PN ---
DATE: 10/05/2016 Room 359 This is a 56-year-old male with recent uncontrolled type 2 insulin-requiring diabetes, now being foll owed closely for metabolic management. He continues to have variable oral intake at this time, with expected glycemic fluctuations as noted thereof. His latest chemistry showed a BUN of 22, sodium 130, potassium 4.7, chloride 95, CO2 of 24, glucose 2 40, and creatinine 1.0. His glucose levels have ranged from 170-247 and 313 mg/dL. So at this time, will continue the same basal and bolus insulin regimen to allow for dose equilibrati on, and keep him on the Lantus given as 30 units subQ at bedtime daily to start tonight. Will increa se the NovoLog to 14 units subQ t.i.d. before meals to start at dinnertime today as ordered. Will co ntinue the low-dose correction scale using NovoLog insulin . Will titrate incrementally as january cated to optimize metabolic control. Will follow. Gayle Botello MD cc: [id number] TT: 10/05/2016 20:01:29 Confirmation # [id number] Dictation # [id number] jn
[2016-10-05] MEDS ORDERED: (Lantus) Insulin Glargine, Recombinant SC SCH (22:00)
[2016-10-06] MEDS: (Novolog) Insulin Aspart, Recombinant 100 u/ml 10 ml vial SC SCH ×6 (08:12→17:45)
[2016-10-06] MEDS: Amoxicillin-Clav 875-125 mg Tab PO SCH ×2 (10:08→17:46)
[2016-10-06 11:58] LABS: CHLORIDE 94 mmol/L (98-107); POTASSIUM 4.5 mmol/L (3.6-5.2); SODIUM 128 mmol/L (132-148)
[2016-10-06 12:01] LABS: BLOOD UREA NITROGEN 22 mg/dL (9-20); CALCIUM 7.4 mg/dl (8.6-10.4); CARBON DIOXIDE 22 mmol/L (22-30); GFR AFRICAN-AMERICAN > 60; GLUCOSE,RANDOM 224 mg/dL (75-110)
--- NOTE | 2016-10-06 13:32 | CP.PCM.PN ---
Subjective - Date & Time of Evaluation Date of Evaluation: 10/06/16 Time of Evaluation: 13:30 - Subjective Subjective: Same mental status Last Na-128- acceptable Drinks much fluids despite fluid restriction Objective - Vital Signs/Intake and Output Vital Signs (last 24 hours): Temp Pulse Resp BP Pulse Ox 98.2 F 74 20 131/79 96 10/06/16 08:00 10/06/16 08:00 10/06/16 08:00 10/06/16 08:00 10/06/16 08:00 Intake and Output: 10/06/16 10/06/16 06:59 18:59 Intake Total 250 Balance 250 - Medications Medications: Current Medications Amlodipine Besylate (Norvasc) 10 mg PO DAILY [facility] Last Admin: 10/06/16 10:07 Dose: 10 mg Amoxicillin/Clavulanate Potassium (Augmentin 875 Mg-125 Mg Tab) 1 tab PO BID [facility] Stop: 10/07/16 23:59 Last Admin: 10/06/16 10:08 Dose: 1 tab Glipizide (Glucotrol) 10 mg PO ACBD [facility] Last Admin: 10/06/16 08:13 Dose: 10 mg Insulin Aspart (Novolog) 0 unit SC ACHS [facility] PRN Reason: Protocol Last Admin: 10/06/16 12:24 Dose: Not Given Insulin Aspart (Novolog) 14 unit SC AC [facility] Last Admin: 10/06/16 12:31 Dose: 14 unit Insulin Glargine (Lantus) 30 unit SC HS [facility] Last Admin: 10/05/16 21:25 Dose: 30 units Labetalol HCl (Trandate) 100 mg PO Q12 [facility] Last Admin: 10/06/16 10:08 Dose: 100 mg Nicotine (Nicoderm Cq) 1 patch TD DAILY [facility] Last Admin: 10/06/16 10:07 Dose: 1 patch Sitagliptin Phosphate (Januvia) 100 mg PO ACB [facility] Last Admin: 10/06/16 08:13 Dose: 100 mg - Labs Labs: 10/01/16 12:22 10/06/16 11:33 PT 14.4 SECONDS (9.7-12.2) H 09/23/16 20:32 INR 1.3 09/23/16 20:32 APTT 30 SECONDS (21-34) 09/23/16 20:32 - Constitutional Appears: No Acute Distress, Chronically Ill - Head Exam Head Exam: ATRAUMATIC, NORMAL INSPECTION - Eye Exam Eye Exam: EOMI, Normal appearance - Neck Exam Neck Exam: Normal Inspection. absent: Tenderness - Respiratory Exam Respiratory Exam: Clear to Ausculation Bilateral, NORMAL BREATHING PATTERN - Cardiovascular Exam Cardiovascular Exam: REGULAR RHYTHM, +S1 - GI/Abdominal Exam GI & Abdominal Exam: Soft. absent: Tenderness - Neurological Exam Neurological Exam: Altered, CN II-XII Intact - Skin Skin Exam: Dry, Warm Assessment and Plan (1) Subdural hematoma Status: Acute (2) Substance abuse Status: Acute (3) SIADH (syndrome of inappropriate ADH production) Status: Acute - Assessment and Plan (Free Text) Plan: Continue oral fluid restriction attempts
--- NOTE | 2016-10-06 14:21 | CP.PCM.PN ---
Subjective - Date & Time of Evaluation Date of Evaluation: 10/06/16 Time of Evaluation: 14:15 - Subjective Subjective: discharge summary dictated #[id number] Objective - Vital Signs/Intake and Output Vital Signs (last 24 hours): Temp Pulse Resp BP Pulse Ox 98.2 F 74 20 131/79 96 10/06/16 08:00 10/06/16 08:00 10/06/16 08:00 10/06/16 08:00 10/06/16 08:00 Intake and Output: 10/06/16 10/06/16 06:59 18:59 Intake Total 250 Balance 250 - Medications Medications: Current Medications Amlodipine Besylate (Norvasc) 10 mg PO DAILY [facility] Last Admin: 10/06/16 10:07 Dose: 10 mg Amoxicillin/Clavulanate Potassium (Augmentin 875 Mg-125 Mg Tab) 1 tab PO BID [facility] Stop: 10/07/16 23:59 Last Admin: 10/06/16 10:08 Dose: 1 tab Glipizide (Glucotrol) 10 mg PO ACBD [facility] Last Admin: 10/06/16 08:13 Dose: 10 mg Insulin Aspart (Novolog) 0 unit SC ACHS [facility] PRN Reason: Protocol Last Admin: 10/06/16 12:24 Dose: Not Given Insulin Aspart (Novolog) 14 unit SC AC [facility] Last Admin: 10/06/16 12:31 Dose: 14 unit Insulin Glargine (Lantus) 30 unit SC HS [facility] Last Admin: 10/05/16 21:25 Dose: 30 units Labetalol HCl (Trandate) 100 mg PO Q12 [facility] Last Admin: 10/06/16 10:08 Dose: 100 mg Nicotine (Nicoderm Cq) 1 patch TD DAILY [facility] Last Admin: 10/06/16 10:07 Dose: 1 patch Sitagliptin Phosphate (Januvia) 100 mg PO ACB [facility] Last Admin: 10/06/16 08:13 Dose: 100 mg - Labs Labs: 10/01/16 12:22 10/06/16 11:33 PT 14.4 SECONDS (9.7-12.2) H 09/23/16 20:32 INR 1.3 09/23/16 20:32 APTT 30 SECONDS (21-34) 09/23/16 20:32
[2016-10-06 15:21] VITALS: BP 136/81; PULSE 84; TEMP 98.6; O2SAT 97
--- NOTE | 2016-10-06 16:23 | PN ---
DATE: 10/06/2016 ROOM 359 This is a 56-year-old male with recent uncontrolled type 2 insulin-requiring diabetes now being follo wed closely for metabolic management. His glycemic levels are fluctuating, as his oral intake is als o quite variable at this time. The latest glucose levels have ranged from 224-257 and 302 early this morning prebreakfast as noted. His bedtime glucose was 281-313 mg/dL. So for now will modify his basal and bolus insulin regimen, and increase the Lantus to 36 units subQ at bedtime daily to start tonight. Will also continue the low-dose correction scale using NovoLog in sulin as ordered. Will continue the dual oral hypoglycemic drug therapy with glipizide given as 10 m g b.i.d. and Januvia at 100 mg daily as ordered. Will continue the NovoLog given as 14 units subQ t. i.d. before meals as ordered. Will obtain serial chemistries and supplement accordingly as needed. Will follow. Gayle Botello MD cc: [id number] TT: 10/06/2016 16:23:11 Confirmation # [id number] Dictation # [id number]
[2016-10-06] MEDS ORDERED: (Lantus) Insulin Glargine, Recombinant SC SCH (22:00)
--- NOTE | 2016-10-07 10:27 | DS ---
Possible transfer to [facility] for rehabilitation. DISCHARGE DIAGNOSES: Hyponatremia, possible syndrome of inappropriate antidiuretic hormone on fluid restriction, status post fall, possible dural thickening versus a small subdural hematoma, evaluated by neurosurgery, cleared by neurosurgery for any intervention, history of unsteady gait, diabetes radha litus, hypertension, asthma, left leg ulcer, chronic sinusitis. HISTORY OF PRESENT ILLNESS: The patient is a 56-year-old male with past medical history of diabetes mellitus, asthma, noncompliant with medication, brought into the ED as the patient was found on the s treet and in the ED, patient was about to be discharged. He had 2 falls, face down. Initial CT show ed possible subdural hematoma and patient is being admitted for further observation. This morning, p atient is feeling better. Denies any new complaints. Complaining of inability to walk as before. D enies any headache, dizziness. Denies any chest pain, shortness of breath or wheezing. Denies any n ausea, vomiting, abdominal pain, diarrhea or constipation. Denies any leg pains or leg cramps. All other systems reviewed and were found to be negative. PHYSICAL EXAMINATION: GENERAL: Middle-aged male, lying in bed, in no acute distress. VITAL SIGNS: Blood pressure 136/81, pulse 84, respirations 20, temperature 98.6 degrees Fahrenheit, O2 sat is 97% on room air. HEENT: Pupils equal, reacting to light and accommodation. Ecchymosis on the eyelids improving. No oral thrush. No pharyngeal congestion. NECK: Supple. No JVD. LUNGS: Bilateral vesicular breath sounds. No wheezing, no rhonchi. CARDIOVASCULAR: S1 and S2 present, regular. ABDOMEN: Soft, nontender. Bowel sounds present. No guarding, no rigidity, no rebound tenderness no pawel. CENTRAL NERVOUS SYSTEM: Alert, awake, oriented x 2. No focal deficits noted. EXTREMITIES: Left leg ulcer with dressing in place. LABORATORIES: From today, sodium 128, potassium 4.5, chloride 94, bicarbonate 22, BUN 22, creatinine 0.9, glucose 257, calcium 7.4. His WBC on 10/01 shows 11.9, hemoglobin 9.9, hematocrit 28.4, platele ts 145. Urine drug screen positive for opiates and benzodiazepines. Alcohol not detected. UA: Spe cific gravity 1.014, pH 7.0, glucose 2+, protein 1+, blood 1+, RBC 8. C. diff negative. Head CT done on 09/24: curvilinear hyperdensity along left temporal convexity seen on the curre nt examination, appears to be unchanged from both prior examinations, is not so hyperdense as the tra nsient right frontal extraaxial hemorrhage was. This most likely represents dural thickening rather than subdural hemorrhage. Chest x-ray on 09/24 shows biapical pleural thickening with upper lobe gran ulomatous changes, no gross focal infiltrate or effusion. Head CT on admission on 09/23 shows complet e opacification of the maxillary and ethmoid sinus and mucosal thickening in the frontal sinus consis tent with sinusitis. EEG shows abnormal because of persistent slowing through the record suggestive of bilateral cerebral dysfunction secondary to metabolic, vascular or degenerative process. HOSPITAL COURSE: The patient was admitted initially to the ICU for observation of subdural hematoma and the repeat CT was read as subdural thickening rather than hematoma. The patient was evaluated by neurosurgery. Neurosurgery is also under the impression that there is no subdural hematoma and they signed off suggesting no other intervention required. The patient remained confused. Initially, cyndi connell was evaluated by neurology. The patient's Accu-Cheks were high and blood pressure was high. T he patient was evaluated by endocrinology. The patient was started on insulin and oral hypoglycemics . He was started on oral antihypertensives. His blood pressure was controlled. He was seen by maría shane for a left leg ulcer. He also received antibiotics for 2 weeks as recommended by ENT for his sinusitis. While patient is waiting for subacute rehab versus intermediate placement, patient develo ped hyponatremia, sodium decreased to 123. The patient was evaluated by nephrology. The patient was placed on fluid restriction. When his sodium decreased to 123, patient was given 1 dose of tolvapta n, with which his sodium improved to 130. Today's sodium is 128. The patient is otherwise hemodynam ically stable and patient had a place at [facility] for long-term care as patient cannot be discharged home as he is homeless and cannot be discharged to [facility] because he is on multiple medications for his diabetes and hypertension. corporate services manager made all the arrangements for his [facility] long-term care. The patient is cleared by renal for discharge. As patient is otherwi se hemodynamically stable, the patient is being discharged to a long-term care facility. CONDITION UPON DISCHARGE: The patient is alert, awake, oriented x 3 and hemodynamically stable. DISCHARGE INSTRUCTIONS: Follow up with PMD, follow up with endocrinology, follow up with neurology, follow up with nephrology and left foot wound care. DISCHARGE DIET: Low sodium, low cholesterol, 1800 calorie ADA diet. ACTIVITY: As tolerated. DISCHARGE MEDICATIONS: Include glipizide 10 mg p.o. b.i.d., Januvia 100 mg daily, Lantus 24 units quintanilla bQ at bedtime, nicotine patch, Norvasc 10 mg p.o. daily, regular insulin 14 units subQ before meals, labetalol 100 mg p.o. q. 12 hours. Mel Solorio MD cc: [id number] TT: 10/07/2016 10:26:50 en
== END 2016-10-06 20:30 | DRG 533 ==
LOC: C.ER 09:10 → C.9E 16:34 → OBSVTOIN 19:04 → C.9I 19:51 → C.6T 09-25 00:35 → C.3T 09-29 14:37
PROVIDERS: ADMIT Internal Medicine; ATTEND Internal Medicine
DX: S06.5X0A Traumatic subdural hemorrhage without loss of consciousness, initial encounter (principal); E11.00 Type 2 diabetes mellitus with hyperosmolarity without nonketotic hyperglycemic-hyperosmolar coma (NKHHC); D69.6 Thrombocytopenia, unspecified; E11.622 Type 2 diabetes mellitus with other skin ulcer; E22.2 Syndrome of inappropriate secretion of antidiuretic hormone; E11.65 Type 2 diabetes mellitus with hyperglycemia; F11.10 Opioid abuse, uncomplicated; L97.929 Non-pressure chronic ulcer of unspecified part of left lower leg with unspecified severity; E86.0 Dehydration; S01.112A Laceration without foreign body of left eyelid and periocular area, initial encounter; S05.11XA Contusion of eyeball and orbital tissues, right eye, initial encounter; Z91.81 History of falling; W19.XXXA Unspecified fall, initial encounter; Y92.238 Other place in hospital as the place of occurrence of the external cause; S05.12XA Contusion of eyeball and orbital tissues, left eye, initial encounter; F10.10 Alcohol abuse, uncomplicated; R26.81 Unsteadiness on feet; Z91.14 Patient's other noncompliance with medication regimen; F17.210 Nicotine dependence, cigarettes, uncomplicated; Z79.4 Long term (current) use of insulin; J45.909 Unspecified asthma, uncomplicated; Z91.013 Allergy to seafood; J34.2 Deviated nasal septum; J32.9 Chronic sinusitis, unspecified; I10 Essential (primary) hypertension; R41.0 Disorientation, unspecified